=== PATIENT | female | born 1995 | race Caucasian/White ===

== ENCOUNTER 2024-01-01 08:56 | Emergency (ER) | payer OTHER, SELFPAY ==
[2024-01-01 09:02] VITALS: BP 129/97; PULSE 100; TEMP 36.9; O2SAT 100; BMI 24.6
--- NOTE | 2024-01-01 09:25 | ED_ITS ---
HPI - Eye Problem General Chief complaint: Skin/Abscess/Foreign Body Stated complaint: EYE PAIN Time Seen by Provider: 01/01/24 09:12 Source: patient Mode of arrival: walk-in Limitations: no limitations History of Present Illness HPI Narrative: 28-year-old female presents for right eye irritation. She accidentally got some nail glue in her right eye only this morning when it splashed up when she spilled it. She flushed out for multiple minutes at home but has discomfort and feels like something is in her eye. It is a burning sensation and it is continuous. Related Data Previous Rx's ?Medication ?Instructions ?Recorded ketorolac 0.5 % eye drops (Acular) 1 drp ophthalmic (eye) Q6H PRN 01/01/24 pain #5 mL sulfacetamide sodium 10 % eye drops 2 drp ophthalmic (eye) Q4H #15 mL 01/01/24 tramadol 50 mg tablet 50 mg PO Q6H PRN pain 3 days #12 01/01/24 tabs Allergies Allergy/AdvReac Type Severity Reaction Status Date / Time acetaminophen (From Pamprin Allergy Severe Hives Verified 01/01/24 09:02 Max) aspirin (From Pamprin Max) Allergy Severe Hives Verified 01/01/24 09:02 caffeine (From Pamprin Max) Allergy Severe Hives Verified 01/01/24 09:02 Review of Systems ROS Narrative A ten point review of systems is negative except as noted above. PFSH PFSH Social History Little interest or pleasure in doing things: more than half the days Feeling down, depressed, or hopeless: not at all Exam Narrative Exam Narrative: Nurses note and vital signs reviewed and patient is not hypoxic. General: The patient appears uncomfortable Skin: Warm, dry, no pallor noted. There is no rash noted. Head: Normocephalic, atraumatic Eye: Left eye appears normal. Right conjunctiva minimally injected. No foreign bodies are found with lid eversion. Fluorescein staining and Bang lamp examination shows a small corneal abrasion at the 6 o'clock position. Globe intact. No residual foreign body noted Ears, Nose, Mouth, and Throat: oral mucosa is moist. Nares patent. Cardiovascular: Regular Rate and Rhythm Respiratory: Patient is in no distress, no accessory muscle use GI: Nontender Musculoskeletal: No joint swelling Neurological: Awake and alert Psychiatric: Cooperative Constitutional Vital Signs, click to edit/add: Last Vital Signs Temp 98.5 F 01/01/24 09:02 Pulse 100 H 01/01/24 09:02 Resp 14 01/01/24 09:02 BP 129/97 H 01/01/24 09:02 Pulse Ox 100 01/01/24 09:02 O2 Del Method Room Air 01/01/24 09:02 Course Vital Signs Vital signs: Vital Signs Temperature 98.5 F 01/01/24 09:02 Pulse Rate 100 H 01/01/24 09:02 Respiratory Rate 14 01/01/24 09:02 Blood Pressure 129/97 H 01/01/24 09:02 Pulse Oximetry 100 01/01/24 09:02 Oxygen Delivery Method Room Air 01/01/24 09:02 Temperature 98.5 F 01/01/24 09:02 Pulse Rate 100 H 01/01/24 09:02 Respiratory Rate 14 01/01/24 09:02 Blood Pressure 129/97 H 01/01/24 09:02 Pulse Oximetry 100 01/01/24 09:02 Oxygen Delivery Method Room Air 01/01/24 09:02 MDM - Eye Problem MDM Narrative Medical decision making narrative: She is prescribed Acular, Ultram, and Bleph-10. Treatment diagnosis and follow- up were discussed with the patient. Differential Diagnosis Differential diagnosis: Likely corneal abrasion, conjunctivitis, acute iritis and subconjunctival hemorrhage Discharge Plan Discharge Chief Complaint: Skin/Abscess/Foreign Body Clinical Impression: Corneal abrasion Patient Disposition: Home, Self-Care Time of Disposition Decision: 09:20 Condition: Good Mode of Transportation: Private Vehicle Prescriptions / Home Meds: New sulfacetamide sodium 10 % drops 2 drp ophthalmic (eye) Q4H Qty: 15 0RF tramadol 50 mg tablet 50 mg PO Q6H PRN (Reason: pain) 3 Days Qty: 12 0RF ketorolac [Acular] 0.5 % drops 1 drp ophthalmic (eye) Q6H PRN (Reason: pain) Qty: 5 0RF Print Language: Macedonian Instructions: Corneal Abrasion (ED)
[2024-01-01] MEDS: FLUORESCEIN SODIUM 1 MG STRIP OP (09:38)
== END 2024-01-01 09:45 | disposition home or self-care (01) ==
PROVIDERS: Emergency Provider Emergency Medicine
DX: S05.01XA Injury of conjunctiva and corneal abrasion without foreign body, right eye, initial encounter (principal); X58.XXXA Exposure to other specified factors, initial encounter
CPT/HCPCS: 99283

== ENCOUNTER 2024-05-22 01:55 | Emergency (ER) | payer OTHER, SELFPAY ==
[2024-05-22 02:04] VITALS: BP 134/93; PULSE 84; TEMP 36.8; O2SAT 100; BMI 25.0
--- OUTSIDE RECORDS SUMMARY | 2024-05-22 02:06 | XMS_ITS | CCD ---
[facility] Providers Care Improvement Auditor Name Role Phone JADEN SCALES Attending Unavailable TIMMIS, DR SAXENA Attending Unavailable TIMMIS, DR SAXENA Admitting Unavailable TIMMIS, DR SAXENA Consulting Unavailable SACLES ., DR JADEN Godoy Primary Care Unavailable Juan Nelson Consulting Unavailable SCALES ., DR JADEN Godoy Primary Care Unavailable SCALES ., DR JADEN Godoy Consulting Unavailable SCALES ., DR JADEN Godoy Attending Unavailable SCALES ., DR JADEN Godoy Admitting Unavailable Juan Nelson Consulting Unavailable SCALES ., DR JADEN Godoy Primary Care Unavailable SCALES ., DR JADEN Godoy Consulting Unavailable SCALES ., DR JADEN Godoy Attending Unavailable SCALES ., DR JADEN Godoy Admitting Unavailable Juan Nelson Consulting Unavailable Unavailable Primary Care Provider Unavailbrandon Cordoba DMD, MD, Justin Unavailable [phone] BRENDA CORDOBA Admitting Unavailable BRENDA CORDOBA Attending Unavailable BRENDA CORDOBA Referring Unavailable PROVIDER, UNKNOWN Attending Unavailable PROVIDER, UNKNOWN Admitting Unavailable PROVIDER, UNKNOWN Attending Unavailable PROVIDER, UNKNOWN Admitting Unavailable PROVIDER, UNKNOWN Attending Unavailable BRENDA CORDOBA Referring Unavailable PROVIDER, UNKNOWN Admitting Unavailable PROVIDER, UNKNOWN Attending Unavailable PROVIDER, UNKNOWN Admitting Unavailable BRENDA CORDOBA Referring Unavailable PROVIDER, UNKNOWN Attending Unavailable TAMARA HIADER Referring Unavailable PROVIDER, UNKNOWN Admitting Unavailable Emeli KAISER MD, Justin Unavailable [phone] Medications Current Medications Medication Drug Class(es) Dates Sig (Normalized) Sig (Original) acetaminophen 325 mg / HYDROcodone bitartrate 5 mg oral tablet (6 sources) Opioid Agonist Start: 12-07-2022 End: 12-10-2022 take 1 tablet by mouth every six hours as needed for pain hydrocodone-aceta minophen (NORCO) 5-325 mg per tablet Indications: Impacted teeth Take 1 Tablet by mouth every 6 hours as needed for Pain for up to 3 days. 12 Tablet 0 12/07/2022 12/10/2022 Active Start: 10-16-2022 End: 10-19-2022 take 1 tablet by mouth every six hours as needed for pain hydrocodone-acetaminophen (NORCO) 5-325 mg per tablet Indications: Cystic lesion of maxilla determined by X-ray Take 1 Tablet by mouth every 6 hours as needed for Pain for up to 3 days. 12 Tablet 0 10/16/2022 10/19/2022 Active acetaminophen 325 mg / oxyCODONE hydrochloride 5 mg oral tablet (1 source) Opioid Agonist Start: 12-07-2022 oxyCODONE-acetaminophen (PERCOCET) 5-325 mg per tablet amoxicillin 500 mg oral capsule (10 sources) Penicillin-class Antibacterial Start: 12-07-2022 End: 12-14-2022 take 1 capsule by mouth every eight hours amoxicillin (AMOXIL) 500 MG capsule Take 1 Capsule by mouth every 8 hours for 7 days. 21 Capsule 0 12/07/2022 12/14/2022 Active Start: 10-16-2022 End: 10-23-2022 take 1 capsule by mouth three times daily amoxicillin (AMOXIL) 500 MG capsule Take 1 Capsule by mouth 3 times daily for 7 days. 21 Capsule 0 10/16/2022 10/23/2022 Active calcium chloride 0.0014 meq/ml / potassium chloride 0.004 meq/ml / sodium chloride 0.103 meq/ml / sodium lactate 0.028 meq/ml injectable solution (1 source) Start: 12-07-2022 melodie pineda rs iv infusion chlorhexidine gluconate 1.2 mg/ml mouthwash (14 sources) Start: 12-07-2022 take 15 mL by mouth twice daily chlorhexidine (Peridex) 0.12 % oral solution Take 15 mL by mouth 2 times daily. 1 mL 3 12/07/2022 Active Start: 10-16-2022 End: 10-23-2022 take 15 mL by mouth twice daily, then take 15 mL by mouth three times daily after mealtime chlorhexidine (Peridex) 0.12 % oral solution Take 15 mL by mouth 2 times daily for 7 days. Swish 15mL for 60 seconds and spit, three times daily after meals, do not swallow. 473 mL 0 10/16/2022 10/23/2022 Active fentaNYL (SUBLIMAZE) 50 MCG/ML injection (1 source) Start: 12-07-2022 fentaNYL (SUBLIMAZE) 50 MCG/ML injection ibuprofen 600 mg oral tablet (14 sources) Nonsteroidal Anti-inflammatory Drug Start: 12-07-2022 take 1 tablet by mouth every six hours as needed for pain ibuprofen (MOTRIN) 600 MG tablet Take 1 Tablet by mouth every 6 hours as needed for Pain. 30 Tablet 3 12/07/2022 Active Start: 10-16-2022 End: 10-23-2022 take 1 tablet by mouth every six hours as needed for pain ibuprofen (MOTRIN) 600 MG tablet Take 1 Tablet by mouth every 6 hours as needed for Pain for up to 7 days. 28 Tablet 0 10/16/2022 10/23/2022 Active 1 ml naloxone hydrochloride 0.4 mg/ml injection (1 source) Opioid Antagonist Start: 12-07-2022 naloxone (NA RCAN) 0.4 MG/ML injection Problems Active Problems Problem Classification Problem Date Documented Date Episodic/Chronic Other nutritional; endocrine; and metabolic disorders (3 sources) Overweight in adulthood with body mass index of 25 or more but less than 30; Translations: [Body mass index (BMI) 27.0-27.9, adult] 08-31-2022 Episodic Other skin disorders (4 sources) Localized swelling, mass and lump, head; Translations: [LOCALIZED SWELLING MASS AND LUMP HEAD] Onset: 05-25-2022 Episodic Other upper respiratory infections (8 sources) Chronic sinusitis, unspecified; Translations: [Chronic maxillary sinusitis] Onset: 12-26-2021 Chronic Residual codes; unclassified (4 sources) Postoperative state; Translations: [Other specified postprocedural states] 12-14-2022 Episodic Past or Other Problems Problem Classification Problem Date Documented Date Episodic/Chronic Disorders of teeth and jaw (20 sources) Tooth eruption disorder; Translations: [Disturbances in tooth eruption] Onset: 08-21-2022 Resolved: 12-07-2022 08-21-2022 Episodic Other nutritional; endocrine; and metabolic disorders (1 source) Body mass index (BMI) 27.0-27.9, adult; Translations: [Body mass index (BMI) 27.0-27.9, adult] Onset: 08-21-2022 Episodic Residual codes; unclassified (1 source) Other specified postprocedural states; Translations: [Other specified postprocedural states] Onset: 12-14-2022 Episodic Results Test Name Value Interpretation Reference Range Facility Progress Noteson 04-07-2023 Merchandise Examiner Authentication Interface Message Text ORAL SURGERY CLINIC FOLLOW UP VISIT Chief Complaint: Pt presents for follow up. History of present illness: 27 yrs old White female 4 months s/p removal of cyst in maxilla. Patient's chief complaint is that when she presses on her left nose, #9 hurts. Patient has no complaint with #11. Patient denies fever, chills, odynophagia, dysphagia, and shortness of breath. Review of Systems: no change Physical findings: Incisions are fully epithelialized Sutures: no longer present No purulence or erythema noted No signs or symptoms of infection Maximum interincisal opening is ~40 No V3 hypoesthesia Occlusion stable and reproducible Assessment / Diagnosis: Periapical cyst [887916] 27 yrs old White female 4 months s/p removal of cyst in maxilla. Patient's chief complaint is that when she presses on her left nose, #9 hurts. Patient has no complaint with #11. It is unlikely that the pain is due to the residual tissue as the left nose area is significantly further up from the area of the cyst removal. Patient also informed that she would likely need root canal treatment on #11, as it is devitalized, and possibly re-treatment for #9. Patient had been given the run-around by her general dentist, and was given a referral to [facility] for evaluation and treatment of #11. Normal postoperative course. Healing as expected. Case seen and discussed with Dr. Cordoba Plan: Follow-Up: PRN Follow up sooner with new or worsening symptoms. Normal [facility] Merchandise Examiner Authentication Interface Message Text Normal The [place] Telephone Encounteron 2023 Merchandise Examiner Authentication Interface Message Text Patient calling back in. Relayed message patient stated the Am time from 9 am to 11:30 am would work best. Please reach out to her to assist. Phone numbers Normal The [employer] Authentication Interface Message Text Called pt to get scheduled for a f/u appt on 04/07 requested by . [facility] stating she can come in any time between 9am-11:30am or 1-330pm Normal [facility] Progress Noteson 12-14-2022 Merchandise Examiner Authentication Interface Message Text Teaching Physician Note: I saw and evaluated the patient. I personally obtained the don and critical portions of the history and physical exam. I reviewed the resident's documentation and discussed the patient with the resident. I agree with the resident's medical decision making as documented in the resident's note. Brenda Cordoba DMD, MD Normal [facility] Merchandise Examiner Authentication Interface Message Text Patient is a 27 y/o F who presents for f/u following extractions of #1 16 17 and 32, routine extraction of #10; E AND C of UL anterior maxillary lesion under general anesthesia one week ago. She reports that he has minimal to no pain in the areas of surgery. She denies any dysphagia, odynophagia fever or chills. 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 CN V and VII intact b/l Sites of extractions healing WNL Sutures intact w/o any evidence of dehiscence FEROZ 30 mm however, able to open to 35 mm gentle stretching No gross mobility of the anterior maxillary teeth noted Patient is a 27 y/o F who presents for f/u following extractions of #1 16 17 and 32, routine extraction of #10; E AND C of UL anterior maxillary lesion under general anesthesia one week ago. Patient appears to be following normal post-operative course. It is important to note that we discussed that given the involvement of the dentigerous cyst turned periapical cyst around #11, vitality of the tooth is questionable and with guarded prognosis may necessitate root canal treatment in the future however this can be done with patient's dentist. Although there is no gross mobility of the anterior maxillary teeth, its still in the patient's best interest to ensure soft diet during the healing process as the bone at the anterior maxilla is weak d/t obvious reasons. Finally we discussed gentle stretching of the jaw to improve FEROZ and that a bridge would be the ideal restorative option to replace #10 d/t the quality of bone in the area in the setting of cystic involvement. Plan F/u as needed Normal [facility] Anesthesia Postprocedure Elaine brewster 12-07-2022 Merchandise Examiner Authentication Interface Message Text Anesthesia Postoperative Assessment: Vital Signs (most recent): BP 140/89 (BP Location: right arm) Pulse 82 Temp 36.7 ???C (98 ???F) (Temporal) Resp 18 Ht 5' 5 (1.651 m) Wt 150 lb (68 kg) LMP 11/30/2022 (Within Weeks) SpO2 100% BMI 24.96 kg/m??? Anesthesia Post Evaluation Level of consciousness: awake Post-procedure exam normal. Body temperature, hydration status, PONV and pain evaluated and addressed. Pain management: adequate Hydration status: normal PONV:No nausea/vomiting reported Cardiopulmonary status stable Respiratory status: acceptable Cardiovascular status: acceptable ANESTHESIA NOTABLE EVENTS: No notable events documented. Normal [facility] Anesthesia Transfer Of Careo n 12-07-2022 Merchandise Examiner Authentication Interface Message Text Patient taken to PACU. Patient was awake, comfortable and stable on arrival. Anesthesia Transfer of Care Note Past Medical History: Past Medical History: Diagnosis Date * Abnormal tooth eruption 11/2022 * Anxiety disorder * Cystic lesion of maxilla determined by X-ray 11/2022 Sleep Apnea/Positive STOP-BANG: No Problem List: Patient Active Problem List: Cystic lesion of maxilla determined by X-ray [M27.40] Past Surgical History: Review of patient's past surgical history indicates: NO PAST SURGICAL HISTORY Allergies: Patient has no known allergies. Basic Operating Room Facts: Surgeon(s): Brenda Cordoba DMD, MD Anesthesiologist: Lex Niño MD Public Relations: Laura Goddard MD EXCISION CYST, enucleation and curretage of left maxillary cyst extraction teeth #1,10,16,17,32 and other indicated teeth (Left) Intraoperative Events: No acute event ASA: 1 EBL: Not documented Urine Not documented Lactated Ringers and NaCl 0.9%: Fluid Totals (Filter: LR and NaCl 0.9% Medications Shown) Medication Calculated Total Lactated Ringers 500 mL / 1 bag Cell Saver: Not documented Blood Volume Values: Blood Products None MTP Blood: MTP PRBC: Not documented MTP FFP: Not documented MTP PLT: Not documented MTP Cryo: Not documented MTP Whole Blood: Not documented Current Vasoactive Medications: {Vasoactive Medications: None Lines, Drains, Airways Peripheral IV Access: 10/02/23 0931 22 gauge Anterior;Right Forearm (Active) Site Assessment WNL;Dressing intact 12/07/22930 Infusion Status Port #1 Infusing;Patent 12/07/22930 Airway Insertion Details [REMOVED] Advanced Airway: ETT, Oral #7 (Removed) 12/07/22943 Pre-Oxygenation/ Induction: Mask Rapid Sequence Induction?: Mask Ventilation: Easy Blade size: Mac 3.5 Visualization: Airway Type: ETT, Oral Airway Size: #7 Post Insertion Assessment: Confirmation: Equal bilateral breath sounds, CO2 confirmed # Attempts >1: Special Equipment: Present on Admission?: Previously Removed / Not Present: Removal Reason: Not Removed at Discharge: Removed 12/07/22 1050 Location (cm) 23 12/07/22943 Measured from: Lips 12/07/22943 Secured via: Taped 12/07/22943 Site Assessment WNL 12/07/22943 All non-working IVs have been removed: N/A Laboratory Data: CBC (last 3 years, up to 5 values) None Basic Metabolic Panel None Basic Metabolic Panel None No results found for: INR No result for BNP LFT's (last 3 years, up to 5 values) None Arterial Blood Gases None Hand off Completed: Yes 1. The patient was identified. 2. Pertinent medical history was relayed. 3. A brief discussion was had about any pertinent surgical/ procedural issues. 4. Intraoperative/ anesthetic management issue and concerns were discussed. 5. Plans for the early post-operative period relayed. 6. An opportunity for questions and acknowledgment of understanding of the report was received. Laura Goddard MD Normal [facility] 12-07-2022 Merchandise Examiner Authentication Interface Message Text [facility] Division of virtualization engineer [address] [place] [address] [place] [id number] OPERATIVE NOTE Name: Comfort Victoria MR#: [id number] ENC#: Data Unavailable Surgical Case #: Data Unavailable Date of Procedure: 12/07/2022 ? PREOPERATIVE DIAGNOSIS: Cystic lesion of maxilla determined by X-ray (Primary Diagnosis) [[id number]] Impacted teeth [[id number]] ? POSTOPERATIVE DIAGNOSIS: Cystic lesion of maxilla determined by X-ray (Primary Diagnosis) [2818297] Impacted teeth [[id number]] OPERATION: FULL BONY IMPACTION [D7240] EXTRACTION ERUPTED TOOTH/EXR [D7140] EXCISION, BENIGN TUMOR/CYST MAXILLA/ZYGOMA, ENUCLEATION AND CURETTAGE [[id number]] ? ATTENDING SURGEON: Brenda Cordoba ? FIRST SURGEON: Brenda Cordoba DMD, MD ? SECOND SURGEON: Sam Botello? ANESTHESIA: General anesthesia via oral endotracheal tube intubation supplemented with 20 mL of a 50/50 mixture of 1% lidocaine with 1:100,000 epinephrine and 0.5% Marcaine. ? SPECIMENS: cyst left maxilla ? ESTIMATED BLOOD LOSS: 30 mL. ? IV FLUIDS: 1000 mL. ? FINDINGS: large cyst left anterior maxilla. Extends up to the nasal floor with disruption of the piriform rim. Apices of tooth #9,10,11 all extend into the cystic cavity, but tooth #10 is centered in the cyst.. ? DESCRIPTION OF OPERATION: The patient was taken to the operating room on a cart and transferred onto the operating room table under thiQuincee own power. The patient was then placed in the supine position. A time-out was conducted to confirm correct patient and procedure to be performed. Anesthesia team, Surgical staff and Nursing team all agreed on correct patient and laterality of the procedure. At this time care of the patient was transferred over to the Anesthesia Service for induction of general anesthetic and intubation. The patient was intubated via oral endotracheal tube intubation. The tube was secured and care of the patient was transferred back to the Oral Maxillofacial Surgery service for continuation of the procedure. The patient was then prepped and draped in usual sterile fashion and the oral cavity was suctioned clear and A throat pack placed deep in the oropharynx. Routine extraction tooth #7 Teeth numbers #'s 1, 16 were full bony impactions Surgical access and exposure was accomplished by a buccal FTF 45 hockey stick incision. Alveolar bone removal was accomplished with periosteal elevator and/or straight dental elevator. The teeth were sectioned into 1 pieces. The teeth and/or fragments were removed by elevator technique. Surgical debris and remaining epithelial fragments were removed by rongeurs. Teeth numbers #'s 17, 32 were full bony impactions Surgical access and exposure was accomplished by a buccal FTF 45 hockey stick incision. Alveolar bone removal was accomplished with a cat drill and irrigation.. The teeth were sectioned into 2 pieces. The teeth and/or fragments were removed by elevator technique. Surgical debris and remaining epithelial fragments were removed by rongeurs. The wounds were irrigated with sterile saline. Mucogingival wound closure utilized 3-0 Chromic interrupted sutures. A sulcular incision was performed from tooth #8-12 with vertical releases bilaterally. A buccal flap was elevated. This was subperiosteal around the periphery of the lesion, and partial thickness over the cystic area. The cyst was then enucleated from the surrounding bone, and dissected off of the nasal mucosa, which is intact. There is violation of the piriform rim inferolaterally. The cavity was evaluated, and decision to leave tooth #9,11. Both of these teeth are compromised, with guarded prognosis, but may be salvageable (although #11 will need root canal, which patient is aware of). The cavity was packed with gelfoam, and closure 3-0 chromic gut. The oral cavity was suctioned clear and the throat pack was removed. After wound closure was accomplished care of the patient was transferred back to the Anesthesia Service for emergence from the general anesthetic and extubation. The patient was extubated without incidence and transferred back to a cart where he was taken to the Post Anesthesia Care Unit for further monitoring. The patient was stable during the entire procedure. There were no complications. Dr. Cordoba was present for all critical parts of the procedure. ? ? ? Brenda Cordoba DMD, MD Normal [facility] URINE HCG-IN OFFICEOrdered B y: Salena Romero on 12-07-2022 HCG ( test) Ql (U) Negative Negative [facility] Negative Internal Control Negative Negative [facility] Positive Internal Control Positive Positive [facility] Anesthesia Preprocedure Eval uationon 12-06-2022 Merchandise Examiner Authentication Interface Message Text ASA: 1 No history of anesthetic complications NPO status: Greater than 8 hours Past Medical History and Review of Systems Pulmonary - negative ROS Dental - negative ROS Endo - negative ROS ceo na (+) irregular periods, Neuro/Psych - negative ROS Cardiovascular - negative ROS (+) Surgical risk: low; Cardiac condition: no apparent, (-) exercise intolerance No previous ECG available GI/Hepatic/Renal - negative ROS Heme/Other - negative ROS Physical Exam Airway Mallampati: I TM distance: Adequate Micrognathia: Not present Jaw opening: Adequate Neck flexion: Adequate Dental PE (+) intact Pulmonary - pulmonary exam normal Comment: Chest clear to auscultation bilaterally Cardiovascular - cardiovascular exam normal Comment: RRR with S1S2; no murmurs, gallops, or rubs Neuro - neurological exam normal Comment: Awake, alert, oriented, No motor deficits and sensation grossly intact Plan Anesthesia plan: general (ETT) Medications may include (but not limited to): anxiolytics, narcotic analgesics, IV hypnotics, neuromuscular blockers and inhalational analgesics Pain management: May include (but not limited to): IV, anxiolytics and narcotic analgesics Anesthesia risks / alternatives discussed pre-op Attestation: Anesthesia options were discussed with the patient and/or legal strategic partnership representative. The risks, benefits and alternatives were reviewed. Questions regarding anesthesia were answered. Patient and/or legal strategic partnership representative knows such anesthetics and procedures may be performed by Resident physicians, Certified Anesthesiologist Assistants, or Certified Nurse Anesthetists under the supervision of a physician. The patient /or the patient's legal strategic partnership representative agree with the plan for anesthesia. Normal [facility] Telephone Encounteron 2022 Merchandise Examiner Authentication Interface Message Text VM TO PATIENT OF SURGERY LOCATION CHANGE FROM TO [address] ON 12-[address] CORDOBA LEFT MESSAGE TO CALL ME BACK. Normal [facility] PSE Call H AND N[place] Merchandise Examiner Authentication Interface Message Text Telephone History Comfort Victoria, [id number] 11/24/2022 Patient was identified by name and date of . Karen Brizuela RN 27 year old 153 lbs 5' 5 Date of Surgery: 12/07/2022 at [facility] Surgeon: Emeli Type of Surgery: EXCISION CYST, LEFT HISTORY OF PRESENT ILLNESS: PSE telephone history conducted with patient for upcoming surgery with . ORAL SURGERY CLINIC PROCEDURE NOTE [facility] Product(s): Biopsy of left anterior maxillary lesion PMH: Reviewed, no change. Antibiotic prophylaxis indicated/taken: not applicable Discussed risks, benefits, and alternatives of treatment. All of the patient's questions were answered, and informed consent was obtained: yes Pre-op Diagnosis: Maxillary bony lesion PROCEDURE TIME OUT CHECK LIST Radiograph is correctly matched to the patient,diagnostic quality, correctly oriented for laterality: Yes Time out performed confirming correct surgical site and/or involved teeth verified by the patient and the surgeon: Yes Anesthesia: 3x1.8cc of 4% articaine 1:100,000 epinephrine 1x1.8cc of 0.5% bupivacaine 1:200,000 epinephrine Attending: Brenda Cordoba DMD, MD Resident: Gurdeep Cortes DDS, MD PROCEDURE: Local anesthesia administered via local infiltration to site of intended extraction. Soft tissue released and FTMP flap created around teeth #9-11 with a distal vertical release around tooth #11. A FTMP flap was elevated to expose the lesion, which was easily accessible through the thin facial bone. Rongeur used to remove a portion of the lesion, which was sent for pathology evaluation. Placed 3-0 chromic gut suture to re-approximate tissue primarily. Sites hemostatic. Gauze placed over extraction sites. Complications: none Specimens: none Estimated blood loss: Minimal (<5 ml) Disposition: Home Plan: - FU Biopsy Results - Scheduled Ext #1, 16, 17, 32 under [place] at Gurdeep Cortes MD, YONY STOP-BANG Row Name 11/24/22 0945 History of sleep apnea? No Snoring No Tired/Fatigued Yes Observed Apnea No Pressure: Hypertension No BMI greater than 35 0 Age greater than 50 0 Neck circ greater than 40cm (15.75 ) Unable to Assess Gender male? 0 Score 1 EXERCISE CAPACITY: 4-10 mets ALLERGIES: Patient has no known allergies. PREVIOUS ANESTHETIC EXPERIENCES AND INTUBATION HISTORY: No previous anesthetic FAMILY HISTORY OF ANESTHETIC COMPLICATIONS: No PAST MEDICAL HISTORY: Past Medical History: Diagnosis Date Abnormal tooth eruption 11/2022 Anxiety disorder Cystic lesion of maxilla determined by X-ray 11/2022 PROBLEM LIST: Patient Active Problem List: Cystic lesion of maxilla determined by X-ray [M27.40] REVIEW OF SYSTEMS: Eyes/Ears: Cystic lesion maxilla and scheduled for excision cyst Teeth Abnormal tooth eruption and listed in surgeon's note [place] teeth to be extracted Pulmonary: Negative Cardiovascular: Negative Gastrointestinal: Negative Renal/Genitourinary : Negative Musculoskeletal: Negative Endocrine: Negative Hematologic: Negative Neurologic: Negative Psychiatric: Anxiety Gynecologic:Irregul ar Menses Constitutional:Nega tive PAST SURGICAL HISTORY: Past Surgical History: Procedure Laterality Date NO PAST SURGICAL HISTORY SOCIAL HISTORY: Social History Socioeconomic History Marital status: Single Tobacco Use Smoking status: Never Smokeless tobacco: Never Substance and Sexual Activity Alcohol use: Never Drug use: Never PAIN ASSESSMENT: Severity: 0 Location: N/A LABORATORY DATA: Type AND Screen None CBC (last 3 years, up to 5 values) None Basic Metabolic Panel None No result for BNP LFT's (last 3 years, up to 5 values) None TESTS REVIEWED: CXRay: No Chest x-ray found EKG: Last ECG Date: Not Found ECHO: Last Echocardiogram: none found going back to 05/25/2022 No results found for this basename: LVEF Stress test date: Last StressTest: none found going back to 05/25/2022 CURRENT MEDICATION LIST: No current outpatient medications on file. No current facility-administer ed medications for this visit. CURRENT MEDICATIONS: Aspirin: No NSAIDS: Yes, prn Other Antiplatelet Medication: No Anticoagulants: No Steroids: No PATIENT MEDICATION INSTRUCTIONS: On the morning of your surgery please take only the following medications, with a small sip of water: None Do not take any Aspirin 7 days before the surgery. Do not take any Ibuprofen products/NSAIDs 3 days before surgery. May take over the counter Acetaminophen (Tylenol) as needed for pain. Do not take any Vitamin E, Elverta 3, fish oils, herbal medications 7 days prior to surgery (Fish Oil, Ginseng, Ginko Biloba) DAY OF SURGERY NOTES: The patient is to have nothing to eat after midnight and may have clear liquids up until 2 hours prior to arrival time. Needs physical assessment, HCG, neck circumference morning of surgery. Kaern Brizuela RN Time Spent Performing thi (more content not included)... Normal [facility] No Panel InformationOrdered By: Virginia Khan on 10-19-2022 Case Report Surgical Pathology Report Case: [id number] Authorizing Provider: Brenda Cordoba DMD, MD Collected: 10/16/2022 1400 Ordering Location: [facility] Oral Surgery Received: 10/16/2022 1400 Pathologist: Virginia Khan MD Specimen: Maxilla [facility] Work Phone: Clinical Information [facility] Work Phone: Final Diagnosis [id number] mbGFuZzEwMzNcZnRuYm pcdWMxIHtccnRmMVxlc AfkOGHbSLEbMT4fzCkb tTz2xMnsNHAwitU3aKS eQLoym3gnLLE3w0jeyz owMTFwRKnvEj2aaPKap PpbLzOlWITyOBz8oD73 MCJpmC3txAIlVDq4UUU hcGVydzEyMjQwXHBhcG BqxNC4RBDjQG8gynylJ OtsVMiiVYEjqqP6ACEl wBAwZ5NeHEMoWW7hhmu bABV3YEcwQYGqLYB8Xq LeDGKox3Knmzq9PdRoy GFyZFxwbGFpblxiXGZz JhIhZF2hOw2kcKrnnRP sICJccGFyXGIwXHBhci CEiLPjjrT0XVKpd5V7B T8lgVJhUWGbqEpkoUsg cZImlT6uaxulc8b1xIL bT6U6ARDkunYmC9yra5 1bKvNqsrAoVE4tTBKne 24sIGFuZCBncmFudWxh vZpgmuX4cKBpvYIcTx8 mnBI0uC7hIGVzd1M0QL CzhlDrr9WozsJco9s1t CUlwzIyqgWiHX8mMUOr AZ50kMkjkq51lpCchPX 0LlxwYXJccGFyfXtccn NiWDyhv2FfX2DwMkEnS FxhbnNpXGRlZmxhbmcx VIBfNGN2zjMfJIXaWNy xUVKxCFawRs6biPYgrC wfMmEeMWBjo7pdjhVPe fuamMp1p3vrKXXiToL2 gOCyAVxkX7fhouXpzSU pUOGuYGu2jE00TLJgnU 7ihRYaMTjecaQxZcO5W DpqLJFkAoT5BSSreHGi ZDBeT6rcJUY4QSvcyxP vyig1TYUciXW4NVH1LL PnJVHfS5WtQV0yFEXfu JVhZHx7n4idsEwaKHVe MRB2p0boGZdfokBgNE7 hjr7bgCu5d0pbhoHtHH GtEZFsnEIURLVyR4Vgu DhmEd1guZf0lSbgEreq MHS0Mrx1TW5gxw97nwc 7xLtzCFUeqxqkLjP0CV paOTFhvhohXXe0GImyP OGmwGQ0ZCEqlTBkU4Sb JPDzYL1spla1IZF4ATx rCKGiGiV1HDBwwBDjKK HqmHriLOuvw153RLA5N eYaXO8lO6Ugu9R6uX7m aXRcZGVmdGFiNzIwXGZ uld6wdOSpLKuyr2FaAJ W6evN1pODyqKJzCMHjS M89Bwwue3TpUdcoTFN8 RZCzwjCft3Rrk1toXvW rmsBfV9jgV6OqGVDpVK VlFTSuYoZalhEjz5Xyl 5GbfBJbdUl8c4gmDWNz LOMfdUury6mlEGZ2EYP wI1D4oWQwq8ozANykXM XpdXT3szE3FXZhaYTfV 5IooA7dUFIzNU7pjdd7 g1yeLXM1PYdyDQUxQhL 5hgX6UNUrlXOuPSCouF xtOKbxk953OVB5QtYfR AHox5FvH9SzwIxsN80j qAzbD28dFIUjqHlhmN5 vmHgdmV0gXeTaOvLtNK xxbFxwbGFpblxmMVxmc zIyXGxhbmcxMDMzXGhp L8hvFiZhWFYeyUpkJDw xi3RxYJIxUOWeVaAibC FyXHBsYWluXGYxXGZzM jBcbGFuZzEwMzNcaGlj aFxmMVxkYmNoXGYxXGx gR7ohAkYwVpSoMOHBsY VjdHJvbmljYWxseSBTa UaqFXFvU2V4GJC2GVNv bmlhIFJheWVzLURhbmF qTVCBQHAafaVdGV5cFX 8yMDIzLlxwYXJccGFyX HBsYWluXGYxXGZzMThc bGFuZzEwMzNcaGljaFx mMVxkYmNoXGYxXGxvY2 zrYqGdJ4IuDCKqDAxuj SBJIGNlcnRpZnkgdGhh dCBJIHBlcnNvbmFsbHk wD04mGQRbxJVqQAKdTJ UweSOegw8diMmsVWW1G Kr9EIVea90sx9IkdZhg DNSar9RbSGGlVILxfRU uKHMpIGFuZCBoYXZlIH JlbmRlcmVkIHRoZSBma X2cpAZomEJttd8anHKs HOOlHmLszNyhpH4pKcE mHwWdCxyiAH8mHBMbJ4 wijETeOVHwCHUzJ9ioD xXzbM2oaFasVDxlepGz LOHzvumpSBP1uT== [facility] Work Phone: Gross Description x8sbdAFgWWDtxKZnQYV wNlxhbnNpXHNwbHRwZ3 MjkrozQAiaMR7wLZ7yi GxhdHRveWVuXGRlZmYw i8fxj193nVWbl0jbYMG PajmgkJi0rNklF89nm1 M3SgcxI48smZKiVUD9F TIyNDBccGFwZXJoMTU4 ORRfrFPkM8ueIBEeDB8 hcmdyMTgwMFxtYXJndD D3SJJhdMTyJ4XnBCNnF LpaCKTkrdj6IkEcXc5g dGVyeTcyMFxwYXJkXHB gGXifFQYrJwVuBE5pMM BwtDKaw4x4kO3tQCWbF KDuAw9yqFnakHHrWhxr YXIgVGhlIHNwZWNpbWV uQCipVGOeF8MnycQpGT IwnULkRAkgATWil8dvK 1zkQDXkifPrhI6rvbvh eSKxQDzaXHY3pQHpVGL evKunwvAsvsIpWL7fHE YfHQYwL6EnITJqE45lR FXguI5pZLPqQMBtYNDf fENkzBTdkQKbcK6tNQK zOMHEeXJxo7IyY1gsCD 9iW88loBYdtyFiIIogL C4bpTVamDZ4bJOsNHQr n7nshxT9QDEoNGOKvVY yv2UeT3tvDL3oI32lb2 rdlRMgw9SsPDEcdSBxT ShzKSBvZiByZWQtdGFu XOVkNaJirFmds6NaVO4 lNTP4ffxvNsSqBuTxxW SbDmGhkNRbLcDyC34mG XLtQROvgTUdnY0mgkJq qvYmjUYisMV4EZOliI8 qiI65rmPwnsYzoeYfW8 Nuz8X1jXZgONSpTD4uE IGuazcuUMOoo2BatFKj fQ== [facility] Work Phone: [facility] Work Phone: Progress Noteson 10-19-2022 [employer] Interface Message Text Teaching Physician Note: I saw and evaluated the patient. I personally obtained the don and critical portions of the history and physical exam. I reviewed the resident's documentation and discussed the patient with the resident. I agree with the resident's medical decision making as documented in the resident's note. Will plan for definitive enucleation and curettage of left maxillary cyst, and likely extraction of tooth/teeth at [facility], pending path. Brenda Cordoba DMD, MD Normal [facility] Patient Instructionson 10-16 [employer] Interface Message Text Oral Surgery Post-operative Instructions BITING ON GAUZE Bleeding may occur for some time after your extraction. In most cases this bleeding can be easily controlled by placing a piece of clean gauze DIRECTLY over the empty tooth socket. Then make sure that you bite firmly on this gauze for 30 to 60 minutes. Use the gauze we supplied to you in the bag. Wash your hands with soap and water before touching the gauze and placing it in your mouth. If a small amount of bleeding continues after 45 minutes then repeat these instructions. Sometimes biting a tea bag may be helpful in controlling minor bleeding. Very light bleeding for 2 days is not uncommon. If heavy bleeding is still persistent during normal clinic hours than call the Clinic where the extraction was done to speak with an oral surgeon. [facility] [phone]. HELPING THE HEALING: For 24 HOURS after your procedure: 1. DO NOT rinse your mouth or spit vigorously 2. DO NOT drink hot liquids such as soup, coffee, tea, hot chocolate 3. AVOID heavy lifting, bending, and strenuous exercise 4. SLEEP with 2 pillows or in a recliner chair, this will help minimize swelling For 72 HOURS (3 DAYS) after your procedure: DO NOT SMOKE OR DRINK ALCOHOL DO NOT DRINK OR SUCK FROM A STRAW STITCHES: Stitches may have been placed to help healing. Your surgeon will specifically inform you if you need to return to have them removed. TOOTH BRUSHING On the day of the procedure it is best to avoid brushing the teeth right next to the extraction site. On the next day you can start brushing ALL your teeth but in a gentle fashion. Remember to not rinse strongly because it may cause you to start bleeding from the extraction site again. SWELLING AND PAIN After the extraction you may feel some pain and experience some swelling. An ice pack may be applied to the area should keep the swelling down (an unopened bag of frozen peas or corn can serve as an ice pack). Put the ice pack on your face for 10 minutes and then leave it off for the next 20 minutes. You can repeat this patter as you feel is necessary for up to 24 hours after the extraction. To avoid injury, make sure that adults or children avoid biting or chewing on their lips of cheeks, which may be numb following a procedure. The peak of swelling occurs 2-3 days after surgery, this is normal. If your pain or swelling seems to be get worse or you feel as though something is not right then call your dentist, as directed above. ANTIBIOTICS AND PAIN MEDICATION If antibiotics have been prescribed then you should take them as directed; this includes taking all the antibiotic (or liquid) pills that were prescribed. If you don't finish them completely a serious infection could result. You may have little of no discomfort after the extraction. If you have minor pain then you may want to take acetaminophen (Tylenol) or ibuprofen (Motrin). It is very important that before taking any medications that you read and follow the directions and warnings that come with these products so you know whether they are right for you and your situation. If you have any questions on whether these medications are right for you, first talk to your doctor or pharmacist before taking the medication. Your surgeon may have given you a written prescription for pain relief. It is important that if you decide to take it you read and understand all the precautions, warnings and directions that come with the medication. If you have any questions on whether the medication is right for you, first talk to your doctor or pharmacist before taking the medication. The pain medication prescription that your dentist gave you may contain a narcotic (like codeine). Most narcotic pain medications can cause upset stomach. If so, then it is best to take them with food. The pain medication prescription that you were given can also make you drowsy or make you act strangely. If so, you should limit or stop activities such as driving a motor vehicle, operate machinery or other activities that require your full attention. EATING AND DRINKING A soft or liquid diet may be best for you after surgery for the first 2-3 days. AFTER ANESTHESIA INSTRUCTIONS: If you were sedated for your procedure, do not drive or operate machinery for 24 hours. A responsible adult should be with you for the remainder of the day. When starting oral intake, be sure to consume CLEAR LIQUIDS first. Clear liquids consist of water, Sprite, martha julius, Jell-O, and non-pulp containing juices such as cranberry and apple juice. Once tolerating clear-liquids, you may advance your diet. Be sure to follow the specific diet instructions from your doctor according to the type of surgery you have had. Patients should not participate in any strenuous activity. Standing and sitting up too quickly following surgery can also result in dizziness and exacerbate these problems. It (more content not included)... Normal [facility] Progress Noteson 08-31-2022 Merchandise Examiner Authentication Interface Message Text Teaching Physician Note: I saw and evaluated the patient. I personally obtained the don and critical portions of the history and physical exam. I reviewed the resident's documentation and discussed the patient with the resident. I agree with the resident's medical decision making as documented in the resident's note. Next step is to return for incisional biopsy of left maxillary cystic lesion, with LA in clinic. Brenda Cordoba DMD, MD Normal [facility] Progress Noteson 08-21-2022 Merchandise Examiner Authentication Interface Message Text OM[facility] PATIENT VISIT CHIEF COMPLAINT: I have a cyst in my jaw HISTORY OF PRESENT ILLNESS: 27 year old female with no significant PMH presents with mother to OM clinic as a referral from an outside provider for the evaluation of cystic lesion in anterior maxillary and evaluation of wisdom teeth. Pt states she had RCT on teeth #9,10 two years ago, and then about 1 year she noticed a lump in the same area. She states as of recent, the size has been relatively unchanged. Pt denies pain associated with the lesion or any intraoral discharge. PAST MEDICAL HISTORY: 27 yrs old White female No past medical history on file. There is no problem list on file for this patient. MEDICATIONS: No current outpatient medications on file. No current facility-administer ed medications for this visit. ALLERGIES: Patient has no known allergies. SURGICAL HX: No past surgical history on file. SOCIAL HX: Tobacco: Never Denies CLINICAL EXAMINATION Extraoral examination: No significant findings No s/s of infection, redness or tenderness to palpation No facial asymmetry or swelling No appreciable LAD No popping/clicking/cr epitus of TMJ b/l No tenderness to palpation of temporalis or masseter asymptomatic function Range of motion WNL CN V and VII intact Intraoral examination: No s/s of infection or tenderness to palpation Moist, pink mucosa Oropharynx clear No pathological soft lesions appreciated Oral cancer screen negative Occlusion stable Oral hygiene fair Buccal expansion of alveolus adjacent to teeth #9,10, that was hard in nature, no fluctance Teeth #1,16,17,22,32 not visible RADIOGRAPHIC INTERPRETATION: Panorex Film and CBCT taken on 08/21/2022 and Retained in our clinic files Tooth # Type Orientation Development Adjacent Structures #'s 1, 16 full bony impactions distoangular 65% abutt maxillary sinus floor #'s 17, 32 full bony impactions mesioangular 65% abutt LIONEL canal Horizontally oriented, full bony impacted tooth #22 RCT #9,10 Large, cystic lesion involving and spanning the roots of teeth #9,10,11 DIAGNOSIS: DDx: Periapical granuloma, lateral periodontal cyst TREATMENT: Exam, Panorex and CBCT evaluated, and Awaiting Insurance authorization. PLAN: 27 year old female with no significant PMH presents with a large, cystic lesion in the left anterior maxilla spanning the roots of teeth #9,10,11. There is buccal expansion associated with this lesion. Pt is indicated for incisional biopsy of lesion for diagnosis and definitive surgical planning. The biopsy will be performed with LA in clinic. Once diagnosis and definitive tx plan are made, tentatively plan for excision of lesion with GA at [facility] d/t the invasiveness of the procedure. Pt also has full bony impacted wisdom teeth with altered paths of eruption and limited arch space for proper eruption of wisdom teeth into the oral cavity. At the time of excision of the cystic lesion, all four wisdom teeth #1, 16, 17, 32 will also be extracted. NV - Incisional biopsy of intrabony cystic lesion in anterior left maxilla with local anesthesia NNV - Excision of cystic lesion with extraction of wisdom teeth #1,16,17,32 with GA at [facility] (PA placed today. But no surgical case request was placed, please schedule surgery once diagnosis is made) Misael Mcgraw DMD Normal [facility] [employer]chandise Examiner Authentication Interface Message Text Pano ordered by Dr. Paz Normal [facility] Telephone Encounteron 2022 [employer]chandise Examiner Authentication Interface Message Text Patient called again today to request a sooner appointment. Please contact patient to schedule as she has an urgent medical condition and there are no slots open to schedule her. Normal [facility] CT FACIAL BONES WO W CONon 0 05-25-2022 CT FACIAL BONES WO W CON EXAMINATION: CT FACIAL BONES WO W CON HISTORY: Mass of head ; lump on left side of nose COMPARISON: No relevant comparison available. TECHNIQUE: Axial, Coronal, and Sagittal CT images created with IV contrast. Dose reduction techniques were achieved by using automated exposure control and/or adjustment of mA and/or kV according to patient size and/or use of iterative reconstruction technique. FINDINGS: FACIAL BONES: 1.9 cm rounded expansile lesion within anterior maxilla just left of midline which expands into anterior lower left nasal passageway and left nasal bone, without involvement of the maxillary sinus. Nonenhancing to minimally enhancing low-density contents within the lesion, likely proteinaceous fluid. No appreciable tear within the lesion. SINUSES: No visible mass, significant fluid or mucosal thickening. NASAL FOSSA: No mass, fracture, or significant septal deviation. SKULL BASE: No mass or bone destruction. ORBITS: No visible mass, hematoma, edema or fracture. OTHER: No lymphadenopathy. Unremarkable nasopharynx, oropharynx, and oral cavity. IMPRESSION: 1. Nonspecific expansile lesion arising from superior aspect of anterior left maxilla with partial destruction of the maxilla, except for the roots of the teeth which extend into the lesion. Mass protrudes into anterior base of left nasal passageway. Expansile abscess versus tumor? ENT consultation is recommended. Electronically authenticated by: JUAN NELSON Date: 2022-05-25 11:31 Normal [facility] XR SINUSES 3 VIEWS OR [facility] 03-19-2022 XR SINUSES 3 VIEWS OR GREATER EXAMINATION: XR SINUSES 3 VIEWS OR GREATER HISTORY: Sinusitis ; pain under left eye for one year COMPARISON: XR sinuses 12/26/2021 FINDINGS: MAXILLARY: No mucosal thickening or fluid level. ETHMOID: No mucosal thickening or fluid level. FRONTAL: No developed frontal sinuses. SPHENOID: No mucosal thickening or fluid level. OTHER: Negative. IMPRESSION: 1. No evidence of acute or chronic sinusitis. Electronically authenticated by: JUAN NELSON Date: 2022-03-19 17:56 Normal [facility] XR SINUSES 3 VIEWS OR [facility] 12-29-2021 XR SINUSES 3 VIEWS OR GREATER EXAMINATION: XR SINUSES 3 VIEWS OR GREATER HISTORY: Swelling over maxillary sinus COMPARISON: No relevant comparison available. FINDINGS: MAXILLARY: No mucosal thickening or fluid level. ETHMOID: No mucosal thickening or fluid level. FRONTAL: Absent frontal sinuses. SPHENOID: No mucosal thickening or fluid level. OTHER: Negative. IMPRESSION: 1. No appreciable acute or significant chronic sinusitis. Consider follow-up CT imaging of the sinuses for greater diagnostic sensitivity if clinically indicated. Electronically authenticated by: JUAN NELSON Date: 2021-12-29 06:32 Normal [facility] Vital Signs Date Time Vital Sign Value Performing Clinician Faci lity 12-07-2022 11:44-0400 Diastolic blood pressure 90 mm[Hg] Brenda Cordoba DMD, MD Work Phone: [facility] 12-07-2022 11:44-0400 Heart rate 82 /min Mahad Bell DMD Work Phone: [facility] 12-07-2022 11:44-0400 Respiratory rate 15 /min Brenda Cordoba DMD Mahad D Work Phone: [facility] 12-07-2022 11:44-0400 SaO2% (BldA) [Mass fraction] 99 % Brenda Cordoba DMD, MD Work Phone: [facility] 12-07-2022 11:44-0400 Systolic blood pressure 132 mm[Hg] [facility]arson [facility] 12-07-2022 10:52-0400 Body temperature 97.9 [degF] Brenda Cordoba DMD Mahad D [facility] 12-07-2022 09:08-0400 Body height 165.1 cm Brenda Cordoba DMD Mahad D [facility] 12-07-2022 09:08-0400 Body mass index (BMI) [Ratio] 24.96 kg/m2 Brenda Cordoba DMD, MD [facility] 12-07-2022 09:08-0400 Body weight 68.04 kg Brenda Cordoba DMD Mahad Larson [facility] 10-16-2022 09:15-0400 Diastolic blood pressure 84 mm[Hg] Brenda Cordoba DMD, MD [facility] 10-16-2022 09:15-0400 Systolic blood pressure 129 mm[Hg] Brenda Larson MD [facility] 10-16-2022 09:13-0400 Body height 165.1 cm Brenda Cordoba DMD Mahad Larson Work Phone: [facility] 10-16-2022 09:13-0400 Heart rate 93 /min Brenda Cordoba DMD Mahad D [facility] 10-16-2022 09:13-0400 Respiratory rate 20 /min Brenda Cordoba DMD Mahad D Work Phone: [employer] 10-16-2022 09:13-0400 SaO2% (BldA) [Mass fraction] 100 % Brenda Cordoba DMD, MD Work Phone: [facility] 08-21-2022 13:27-0400 Diastolic blood pressure 80 mm[Hg] Brenda Cordoba DMD, MD Work Phone: [facility] [employer] 08-21-2022 13:27-0400 Heart rate 75 /min Mahad Bell DMD Work Phone: [facility] [employer] 08-21-2022 13:27-0400 Systolic blood pressure 132 mm[Hg] Brenda Larson MD [facility] 08-21-2022 13:25-0400 Body height 165.1 cm Mahad Bell DMD [facility] 08-21-2022 13:25-0400 Body mass index (BMI) [Ratio] 27.46 kg/m2 Brenda Cordoba DMD, MD [facility] 08-21-2022 13:25-0400 Body weight 74.84 kg Mahad Bell DMD Work Phone: [facility] Encounters Encounter Date Encounter Type Care Provider Facility Start: 10-24-2023 End: 10-24-2023 Letter encounter Brenda Cordoba DMD, MD [facility] Start: 04-07-2023 End: 04-12-2023 ambulatory UNKNOWN PROVIDER Facility:[facility] Start: 04-07-2023 End: 04-07-2023 Patient encounter procedure Brenda Cordoba DMD, MD [facility] Comment on above: Periapical cyst (Shari karen Dx) Start: 04-05-2023 Telephone encounter Brenda ballard DMD, MD [facility] Start: 12-14-2022 ambulatory UNKNOWN PROVIDER Facili ty:[facility] Start: 12-14-2022 End: 12-14-2022 Patient encounter procedure Brenda Cordoba DMD, MD Work Phone: [facility] Oral Surgery Comment on above: Post-operative state (Primary Dx) Start: 12-07-2022 End: 12-07-2022 ambulatory BRENDA CORDOBA Facility:[facility] Start: 12-07-2022 End: 12-07-2022 Subsequent hospital visit by physician Brenda Cordoba DMD, MD Work Phone: [facility] Comment on above: Cystic lesion of max illa determined by X-ray (Primary Dx); Impacted teeth Start: 11-24-2022 ambulatory UNKNOWN PROVIDER Facili ty:[facility] Start: 11-24-2022 Encounter for other preprocedural examination UNKNOWN PROVIDER [facility] Start: 10-19-2022 Letter encounter Brenda Cordoba DMD, MD Work Phone: [facility] Oral Surgery Start: 10-16-2022 End: 10-19-2022 ambulatory UNKNOWN PROVIDER Facility:[facility] Start: 10-16-2022 End: 10-19-2022 Patient encounter procedure Brenda Cordoba DMD, MD Work Phone: [facility] Oral Surgery Comment on above: Cystic lesion of max illa determined by X-ray (Primary Dx) Cystic lesion of max illa determined by X-ray (Primary Dx); Body mass index (BMI) 27.0-27.9, adult Start: 08-21-2022 End: 08-21-2022 Patient encounter procedure Brenda Cordoba DMD, MD Work Phone: [facility] Oral Surgery Comment on above: Abnormal tooth erupt ion (Primary Dx) Abnormal tooth erupt ion (Primary Dx); Body mass index (BMI) 27.0-27.9, adult Start: 08-21-2022 End: 08-21-2022 ambulatory UNKNOWN PROVIDER Facility:[facility] Start: 05-25-2022 End: 05-26-[address] TAMARA HAIDER Facility:[facility] Start: 05-15-2022 ambulatory JADEN SCALES Facility:[facility] Start: 03-19-2022 End: 03-20-[address] JADEN SCALES . Facility: Start: 12-26-2021 End: 12-27-[address] JADEN SCALES . Facility: Procedures Date Procedure Procedure Detail Performing Clinician Start: 12-07-2022 Urine test visual color cmprsn meths Gurdeep Cortes MD, DDS Work Phone: Start: 10-16-2022 Level iv surg pathol ogy gross&microscopic exam Gurdeep Cortes MD, DDS Work Phone: Start: 10-16-2022 Biopsy bone open superficial Gurdeep Cortes MD, DDS Work Phone: Start: 08-21-2022 panoramic radiograph ic image Misael Mariluz [facility] Work Phone: Plan of Treatment Date Care Activity Detail Author Start: 2047 Shingles (RZV) Vacci ne (1 of 2) Shingles (RZV) Vaccine (1 of 2) [facility] Start: 12-07-2023 Influenza vaccination Influenz a Vaccine (#1) [facility] Start: 09-02-2023 End: 09-02-2023 Patient encounter procedure 09/02/2023 10:40 AM EDT Procedure Visit [facility] [address] [place] [address] Miguel Angel Lee, DDS [address] [place] [address] [facility] Start: 04-07-2023 End: 04-07-2023 Patient encounter procedure 04/07/2023 11:00 AM EST Office Visit [facility] Oral Surgery [address] [place] [address] Brenda Cordoba DMD, MD [address] [place] [address] [facility] Oral Surgery Start: 12-14-2022 End: 12-14-2022 Patient encounter procedure [facility] Oral Surgery Start: 12-07-2022 End: 12-07-2022 Admission to same day surgery center 12/07/2022 1:18 PM EDT - 12/07/2022 2:43 PM EDT Surgery [facility] Ambulatory Surgery [address] [place] [id number] Brenda Cordoba DMD, MD [address] [place] [id number] EXCISION CYST [facility] Surgery Comment on above: EXCISION CYST Start: 12-07-2022 End: 12-07-2022 Exc benign tumor/cyst maxl/zygoma encl & curtg EXCISION CYST Routine scheduled Cystic lesion of maxilla determined by X-ray 12/07/2022 1:18 PM EDT [facility] Surgery [place] Start: 12-07-2022 Subsequent hospital visit by physician 12/07/2022 1:18 PM EDT Hospital Encounter [facility] Ambulatory Surgery [address] [place] [id number] Brenda Cordoba DMD, MD [address] [place] [address] [facility] Ambulatory Surgery Start: 12-07-2022 End: 12-07-2022 Exc benign tumor/cyst maxl/zygoma encl & curtg EXCISION CYST Routine scheduled Cystic lesion of maxilla determined by X-ray 12/07/2022 9:27 AM EDT [address] [facility] [place] Start: 12-06-2022 Influenza vaccination Influenz a Vaccine (#1) [facility] Start: 11-24-2022 End: 11-24-2022 Nursing evaluation of patient and report 11/24/2022 9:30 AM EDT Nurse Visit [facility] Pre Surgical Evaluation [address] [place] [address] [facility] Pre Surgical Evaluation Start: 11-06-2022 COVID-19 Vaccine () COVID-19 Vaccine () [facility] Start: 11-06-2022 Influenza vaccination Influenz a Vaccine (#1) [facility] Start: 10-16-2022 End: 10-16-2022 Patient encounter procedure 10/16/2022 9:00 AM EDT Office Visit [facility] Oral Surgery [address] [place] [address] Brenda Cordoba DMD, MD [address] [place] [address] [facility] Oral Surgery Start: 06-02-2021 COVID-19 Vaccine (2 - Booster for Moderna series) COVID-19 Vaccine (2 - Booster for Moderna series) [facility] Start: 06-02-2021 COVID-19 Vaccine (3 - Moderna series) COVID-19 Vaccine (3 - Moderna series) [facility] Start: 2018 Screening for malign ant neoplasm of cervix Pap Smear [facility] Start: 2016 Hepatitis A (HAV) Va ccine (optional start 19+ years) Hepatitis A (HAV) Vaccine (optional start 19+ years) [facility] Start: 2016 Hepatitis B vaccination Hepati tis B (HBV) Vaccine (1 of 3 - 19+ 3-dose series) [facility] Start: 2015 Hepatitis C screening Hepatitis C An tibody [facility] Start: 2015 Tetanus + diphtheria + acellular pertussis vaccine (product) Tdap Booster [facility] Start: 2012 HIV screening HIV Test [facility] Start: 2012 Vaccination for christian n papillomavirus HPV Vaccine (1 - 3-dose series) [facility] Start: 2008 Vaccination for christian n papillomavirus [facility] Start: 1997 COVID-19 Vaccine ( formulation) COVID-19 Vaccine ( formulation) [facility] Start: 1997 Hepatitis B vaccination Hepati tis B (HBV) Vaccine (1 of 3 - 3-dose series) [facility] Exc benign tumor/cys t maxl/zygoma encl & curtg EXCISION CYST Routine scheduled Cystic lesion of maxilla determined by X-ray [facility] Exc benign tumor/cys t maxl/zygoma encl & curtg EXCISION CYST Routine scheduled Cystic lesion of maxilla determined by X-ray [facility] Exc benign tumor/cys t maxl/zygoma encl & curtg EXCISION, BENIGN TUMOR/CYST MAXILLA/ZYGOMA, ENUCLEATION AND CURETTAGE Procedures Routine Cystic lesion of maxilla determined by X-ray Ordered: 12/07/2022 [facility] [facility] Comment on above: Ordered: 12/07/2022 extraction, erupted tooth or exposed root (elevation and/or forceps removal) EXTRACTION ERUPTED TOOTH/EXR Procedures Routine Cystic lesion of maxilla determined by X-ray Ordered: 12/07/2022 [facility] Comment on above: Ordered: 12/07/2022 removal of impacted tooth - completely bony FULL BONY IMPACTION Procedures Routine Impacted teeth Ordered: 12/07/2022 [facility] [employer] Comment on above: Ordered: 12/07/2022 Surgical pathology procedure [facility] Work Phone: Comment on above: Ordered: 10/16/2022 Surgical pathology procedure SPECIMEN FOR SURGICAL PATH Anatomic Pathology Routine Cystic lesion of maxilla determined by X-ray Release Upon Ordering for 1 Occurrences starting 12/07/2022 [facility] Work Phone: Comment on above: Release Upon Orderin g for 1 Occurrences starting 12/07/2022 Immunizations Immunization Date Immunization Notes Care Provider [facility] 02-01-2023 Influenza, injectabl e, Madin [place] Canine Kidney, preservative free, quadrivalent Brenda Cordoba DMD, MD Work Phone: [facility] 02-01-2023 influenza virus vacc ine, unspecified formulation Brenda Cordoba DMD, MD Work Phone: [facility] 04-07-2021 Moderna Monovalent ( 12+ yrs) COVID-19 vaccine, mRNA, spike protein, LNP, PF, 100 mcg/0.5 mL (OBS=513) Brenda Cordoba DMD, MD Work Phone: [facility] 07-09-2020 Moderna Monovalent ( 12+ yrs) COVID-19 vaccine, mRNA, spike protein, LNP, PF, 100 mcg/0.5 mL (JFE=653) Brenda Cordoba DMD, MD Work Phone: [facility] 01-31-2020 Influenza, injectabl e, Madin [place] Canine Kidney, preservative free, quadrivalent Brenda Cordoba DMD, MD Work Phone: [facility] 01-31-2020 influenza virus vacc ine, unspecified formulation Brenda Cordoba DMD, MD Work Phone: [facility] Payers Date Payer Category Payer Medicaid [id number] 2018 Unknown [id number] 1997 Unknown [id number] 2.16.8 [id number] 1997 Unknown [id number] 2.16.84 [id number] 1997 Unknown [id number] 2.16.84 [id number] 1997 Unknown [id number] 2.16.84 [id number] 1997 Unknown [id number] 2.16. [id number] 1997 Unknown [id number] 2.16. [id number] 1997 Unknown [id number] 2.16. [id number] 1997 Unknown [id number] 2.16. [id number] 1997 Unknown [id number] 2.16. [id number] 1997 Unknown [id number] 2.16. [id number] 1959 Unknown [id number] 1959 Unknown [id number] Self-pay Social History Date Type Detail Facility Start: 08-21-2022 Tobacco smoking status NHIS Never sm oked tobacco [facility] Start: 08-21-2022 Tobacco use and exposure Smokeless t obacco non-user [facility] Start: 1997 Sex Assigned At Not on file [facility] Start: 11-24-2022 End: 12-14-2022 Gender identity Not on file [facility] Start: 11-24-2022 End: 12-14-2022 Alcohol intake Lifetime non-drinker (finding) [facility] Start: 11-24-2022 End: 12-14-2022 History of Social function [facility] Within the last year , have you been afraid of your partner or ex-partner? No [facility] In a typical week, h ow many times do you talk on the telephone with family, friends, or neighbors? Patient declined [facility] Are you now , , , , never or living with a partner? Living with partner [facility] Start: 12-14-2022 Education 12 [facility] Clinical Notes 07-30-2022 to 04-07-2023 Clinton Cali DDS - 04/07/2023 12:05 PM Joseline Solorznao - 04/07/2023 11:24 AM ESTTelephone Encounter - Jeanette Gonzales - 04/05/2023 9:07 AM Brenda James DMD, MD - 12/14/2022 12:38 PM EDT Note Date & Type Note Facility 04-07-2023 History of Present illness Narrative ORAL SURGERY CLINIC FOLLOW UP VISIT Chief Complaint: Pt presents for follow up. History of present illness: 27 yrs old White female 4 months s/p removal of cyst in maxilla. Patient's chief complaint is that when she presses on her left nose, #9 hurts. Patient has no complaint with #11. Patient denies fever, chills, odynophagia, dysphagia, and shortness of breath. Review of Systems: no change Physical findings: Incisions are fully epithelialized Sutures: no longer present No purulence or erythema noted No signs or symptoms of infection Maximum interincisal opening is ~40 No V3 hypoesthesia Occlusion stable and reproducible Assessment / Diagnosis: Periapical cyst [[id number]] 27 yrs old White female 4 months s/p removal of cyst in maxilla. Patient's chief complaint is that when she presses on her left nose, #9 hurts. Patient has no complaint with #11. It is unlikely that the pain is due to the residual tissue as the left nose area is significantly further up from the area of the cyst removal. Patient also informed that she would likely need root canal treatment on #11, as it is devitalized, and possibly re-treatment for #9. Patient had been given the run-around by her general dentist, and was given a referral to [facility] for evaluation and treatment of #11. Normal postoperative course. Healing as expected. Case seen and discussed with Dr. Cordoba Plan: Follow-Up: PRN Follow up sooner with new or worsening symptoms. Images from the original note were not included. documented in this encounter [facility] 04-05-2023 Telephone encounter Note Patient calling back in. Relayed message patient stated the Am time from 9 am to 11:30 am would work best. Please reach out to her to assist. Phone numbers [facility] 04-05-2023 Miscellaneous Notes Patient calling back in. Relayed message patient stated the Am time from 9 am to 11:30 am would work best. Please reach out to her to assist. Phone numbers Called pt to get scheduled for a f/u appt on 04/[address]Clemow. Buckley stating she can come in any time between 9am-11:30am or 1-330pm documented in this encounter [facility] 04-05-2023 Telephone encounter Note Called pt to get scheduled for a f/u appt on 04/[address]Clemow. Buckley stating she can come in any time between 9am-11:30am or 1-330pm [facility] 12-14-2022 History of Present illness Narrative Teaching Physician Note: I saw and evaluated the patient. I personally obtained the don and critical portions of the history and physical exam. I reviewed the resident's documentation and discussed the patient with the resident. I agree with the resident's medical decision making as documented in the resident's note. Brenda Cordoba DMD, MD Patient is a 27 y/o F who presents for f/u following extractions of #1 16 17 and 32, routine extraction of #10; E&C of UL anterior maxillary lesion under general anesthesia one week ago. She reports that he has minimal to no pain in the areas of surgery. She denies any dysphagia, odynophagia fever or chills. 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 CN V and VII intact b/l Sites of extractions healing WNL Sutures intact w/o any evidence of dehiscence FEROZ 30 mm however, able to open to 35 mm gentle stretching No gross mobility of the anterior maxillary teeth noted Patient is a 27 y/o F who presents for f/u following extractions of #1 16 17 and 32, routine extraction of #10; E&C of UL anterior maxillary lesion under general anesthesia one week ago. Patient appears to be following normal post-operative course. It is important to note that we discussed that given the involvement of the dentigerous cyst turned periapical cyst around #11, vitality of the tooth is questionable and with guarded prognosis may necessitate root canal treatment in the future however this can be done with patient's dentist. Although there is no gross mobility of the anterior maxillary teeth, its still in the patient's best interest to ensure soft diet during the healing process as the bone at the anterior maxilla is weak d/t obvious reasons. Finally we discussed gentle stretching of the jaw to improve FEROZ and that a bridge would be the ideal restorative option to replace #10 d/t the quality of bone in the area in the setting of cystic involvement. Plan F/u as needed documented in this encounter [facility] 12-14-2022 History of Present illness Narrative Patient is a 27 y/o F who presents for f/u following extractions of #1 16 17 and 32, routine extraction of #10; E&C of UL anterior maxillary lesion under general anesthesia one week ago. She reports that he has minimal to no pain in the areas of surgery. She denies any dysphagia, odynophagia fever or chills. 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 CN V and VII intact b/l Sites of extractions healing WNL Sutures intact w/o any evidence of dehiscence FEROZ 30 mm however, able to open to 35 mm gentle stretching No gross mobility of the anterior maxillary teeth noted Patient is a 27 y/o F who presents for f/u following extractions of #1 16 17 and 32, routine extraction of #10; E&C of UL anterior maxillary lesion under general anesthesia one week ago. Patient appears to be following normal post-operative course. It is important to note that we discussed that given the involvement of the dentigerous cyst turned periapical cyst around #11, vitality of the tooth is questionable and with guarded prognosis may necessitate root canal treatment in the future however this can be done with patient's dentist. Although there is no gross mobility of the anterior maxillary teeth, its still in the patient's best interest to ensure soft diet during the healing process as the bone at the anterior maxilla is weak d/t obvious reasons. Finally we discussed gentle stretching of the jaw to improve FEROZ and that a bridge would be the ideal restorative option to replace #10 d/t the quality of bone in the area in the setting of cystic involvement. Plan F/u as needed documented in this encounter [facility] 12-07-2022 Hospital Discharge instructions Saurabh Marquez RN - 12/07/2022 10:53 AM EDT Dental extraction Instructions Biting on Gauze to Control Bleeding Bleeding may occur for some time after you extraction. In most cases this bleeding can be easily controlled by placing a piece of clean gauze DIRECTLY over the empty tooth socket. Then make sure that you bite firmly on this gauze for 30 to 60 minutes. Use the gauze we supplied to you in the bag. Wash your hands with soap and water before touching the gauze and placing it in your mouth. Place the used gauze from your mouth in a plastic bag and dispose the bag in a trash container. Make sure to wash your hands again when you are done touching the used gauze and before touching anything else. If a small amount of bleeding continues after 45 minutes then repeat these instructions. Sometimes biting a tea bag may be helpful in controlling minor bleeding. Very light bleeding for 2 days is not uncommon. If heavy bleeding is still persistent during normal clinic hours than call the Clinic where the extraction was done to speak with an oral surgeon. [facility] [phone]. HELPING THE HEALING PROCESS AND STOPPING THE BLEEDING FOR THE NEXT 24 HOURS (1 DAY) AFTER THE EXTRACTION: DO NOT RINSE YOUR MOUTH OR SPIT 2. DO NOT DRINK ANY HOT LIQUIDS SUCH SOUP, COFFEE, TEA, HOT CHOCOLATE AVOID HEAVY LIFTING, BENDING OR OTHER STENUOUS EXERCISES SLEEP WITH 2 PILLOWS OR IN A RECLINER CHAIR. KEEPING HEAD ELEVATED WILL REDUCE SWELLING. SUTURE WILL DISSOLVE IN 7-10 DAYS FOR THE NEXT 72 HOURS (3 DAYS) AFTER THE EXTRACTION: DO NOT SMOKE OR DRINK ALCOHOL DO NOT DRINK OR SUCK FROM A STRAW OR ANYTHING ELSEDO NOT DRINK. Stitches may have been placed to help healing. Your surgeon will advise you if you need to return to have them removed. TOOTH BRUSHING On the day of the extraction it is best to avoid brushing the teeth right next to the extraction site. On the next day you can start brushing ALL your teeth but in a gentle fashion. Remember to not rinse strongly because it may cause you to start bleeding from the extraction site again. SWELLING AND PAIN After the extraction you may feel some pain and experience some swelling. An ice pack of unopened bag of frozen peas of corn applied to the area should keep the swelling down. Put the ice pack on you face for 10 minutes and then leave it off for the next 20 minutes. You can repeat this patter as you feel is necessary for up to 24 hours after the extraction. To avoid injury, make sure that adults or children avoid biting or chewing on their lips of cheeks, which may be numb following an extraction. If your pain or swelling seems to be getting worse or you feel as though something is not right then call your dentist, as directed above. ANTIBIOTICS AND PAIN MEDICATION If antibiotics have been prescribed then you should take them as directed; this includes taking all the antibiotic (or liquid) pills that were prescribed. If you don't finish them completely a serious infection could result. You may have little of no discomfort after the extraction. If you have minor pain then you may want to take acetaminophen (Tylenol) or ibuprofen (Motrin). It is very important that before taking any medications that you read and follow the directions and warnings that come with these products so you know whether they are right for you and you situation. If you have any questions on whether these medications are right for you, first talk to your doctor or pharmacist before taking the medication. Your surgeon may have given you a written prescription for pain relief. It is important that if you decide to take it you read and understand all the precautions, warnings and directions that come with the medication. If you have any questions on whether the medication is right for you, first talk to your doctor or pharmacist before taking the medication. The pain medication prescription that your dentist gave you may contain a narcotic (like codeine). If so, most narcotic pain medications may upset your stomach. If so, then it is best to take them with food. The pain medication prescription that you were given can also make you drowsy or make you act strangely. If so, you should limit or stop activities such as driving a motor vehicle, operate machinery or other activities that require your full attention. EATING AND DRINKING A soft or liquid diet may be best for you after a difficult extraction. For a simpler extraction just make sure you do your chewing with those teeth that are NOT near the extraction site. POSTOPERATIVE INSTRUCTION AFTER SEDATION / GENERAL ANESTHESIA If you had general anesthesia of IV sedation, do not drive or operate machinery for 24 hours. A responsible adult should be with you for the remainder of the day. When starting oral intake, be sure to consume CLEAR LIQUIDS first. Clear liquids consist of water, Sprite, martha julius, Jell-O, and non-pulp containing juices such as cranberry and apple juice. Once tolerating clear-liquids, you may advance your diet. Be sure to follow the specific diet instructions from your doctor according to the type of surgery you have had. It is important that you take any narcotic containing pain medications with food. Patients should not participate in any strenuous activity. Standing and sitting up too quickly following surgery can also result in dizziness and exacerbate these problems. It is also important that patients be supervised for an appropriate amount of time following sedation in order to ensure that they remain safe in the post-operative period. Under NO circumstances should a patient drive the day of surgery or participate in any important decisions. NAUSEA & VOMITING Nausea is not uncommon after surgery. Sometimes pain medications may be the cause. In the event of nausea and/or vomiting following surgery, do not take anything by mouth for at least an hour including the prescribed medicine. You should then sip on Coke, tea, or martha julius. You should sip slowly over a 15-minute period. When the nausea subsides, you can begin taking solid foods and the prescribed medicine. You may take the anti-nausea medication if prescribed. If the above is not helpful, contact your surgeon. Please if you have any questions or concerns please contact us: [facility] . Ask for the oral hygienist nutritional services cook (after hours). surgery attendant Clinic Hours: Mon-Fri 8:30 am to 4:30 pm. PERIOPERATIVE DISCHARGE/HOME-GOING INSTRUCTIONS ANESTHESIA - GENERAL (ADULT) If a problem arises, you may contact your physician by calling [phone] and asking for the resident nutritional services cook for oral surgery service. Special Care Needs: Activity: Rest at home today and tomorrow, then progress to your regular activities as tolerated. Diet: Clear liquids are best tolerated at first. If you are not nauseated, you can progress your diet to solid foods as tolerated. Possible post-operative precautions: Call you doctor or clinic for: 1. Signs of infection such as fever or chills. 2. Severe pain that in not relieved by Tylenol or your pain medicine prescription. 3. You may have a sore throat - it is usually gone in 1 to 2 days. Post-anesthesia safety: Possible side effects include drowsiness, dizziness, or inability to think clearly. For your safety, do not drive, drink alcoholic beverages, take any unprescribed medication or make any important decisions for 24 hours. A responsible adult should be with you for 24 hours. If no urine by 8pm or you become very uncomfortable and can t urinate, call [phone] or come to the emergency room. The day after surgery, a nurse will call to check on you. However, if there are any questions or concerns, please call us at the number listed in the home going instructions. documented in this encounter [facility] 12-07-2022 Miscellaneous Notes [facility] Division of virtualization engineer [address] [place] [address] Dr. MayberryMary Ville [id number] OPERATIVE NOTE Name: Comfort Victoria MR#: [id number] ENC#: Data Unavailable Surgical Case #: Data Unavailable Date of Procedure: 12/07/2022 ? PREOPERATIVE DIAGNOSIS: Cystic lesion of maxilla determined by X-ray (Primary Diagnosis) [[id number]] Impacted teeth [[id number]] ? POSTOPERATIVE DIAGNOSIS: Cystic lesion of maxilla determined by X-ray (Primary Diagnosis) [[id number]] Impacted teeth [[id number]] OPERATION: FULL BONY IMPACTION [D7240] EXTRACTION ERUPTED TOOTH/EXR [D7140] EXCISION, BENIGN TUMOR/CYST MAXILLA/ZYGOMA, ENUCLEATION AND CURETTAGE [[id number]] ? ATTENDING SURGEON: Brenda Cordoba ? FIRST SURGEON: Brenda Cordoba DMD, MD ? SECOND SURGEON: Sam Botello? ANESTHESIA: General anesthesia via oral endotracheal tube intubation supplemented with 20 mL of a 50/50 mixture of 1% lidocaine with 1:100,000 epinephrine and 0.5% Marcaine. ? SPECIMENS: cyst left maxilla ? ESTIMATED BLOOD LOSS: 30 mL. ? IV FLUIDS: 1000 mL. ? FINDINGS: large cyst left anterior maxilla. Extends up to the nasal floor with disruption of the piriform rim. Apices of tooth #9,10,11 all extend into the cystic cavity, but tooth #10 is centered in the cyst.. ? DESCRIPTION OF OPERATION: The patient was taken to the operating room on a cart and transferred onto the operating room table under thiQuincee own power. The patient was then placed in the supine position. A time-out was conducted to confirm correct patient and procedure to be performed. Anesthesia team, Surgical staff and Nursing team all agreed on correct patient and laterality of the procedure. At this time care of the patient was transferred over to the Anesthesia Service for induction of general anesthetic and intubation. The patient was intubated via oral endotracheal tube intubation. The tube was secured and care of the patient was transferred back to the Oral Maxillofacial Surgery service for continuation of the procedure. The patient was then prepped and draped in usual sterile fashion and the oral cavity was suctioned clear and A throat pack placed deep in the oropharynx. Routine extraction tooth #7 Teeth numbers #'s 1, 16 were full bony impactions Surgical access and exposure was accomplished by a buccal FTF 45 hockey stick incision. Alveolar bone removal was accomplished with periosteal elevator and/or straight dental elevator. The teeth were sectioned into 1 pieces. The teeth and/or fragments were removed by elevator technique. Surgical debris and remaining epithelial fragments were removed by rongeurs. Teeth numbers #'s 17, 32 were full bony impactions Surgical access and exposure was accomplished by a buccal FTF 45 hockey stick incision. Alveolar bone removal was accomplished with a cat drill and irrigation.. The teeth were sectioned into 2 pieces. The teeth and/or fragments were removed by elevator technique. Surgical debris and remaining epithelial fragments were removed by rongeurs. The wounds were irrigated with sterile saline. Mucogingival wound closure utilized 3-0 Chromic interrupted sutures. A sulcular incision was performed from tooth #8-12 with vertical releases bilaterally. A buccal flap was elevated. This was subperiosteal around the periphery of the lesion, and partial thickness over the cystic area. The cyst was then enucleated from the surrounding bone, and dissected off of the nasal mucosa, which is intact. There is violation of the piriform rim inferolaterally. The cavity was evaluated, and decision to leave tooth #9,11. Both of these teeth are compromised, with guarded prognosis, but may be salvageable (although #11 will need root canal, which patient is aware of). The cavity was packed with gelfoam, and closure 3-0 chromic gut. The oral cavity was suctioned clear and the throat pack was removed. After wound closure was accomplished care of the patient was transferred back to the Anesthesia Service for emergence from the general anesthetic and extubation. The patient was extubated without incidence and transferred back to a cart where he was taken to the Post Anesthesia Care Unit for further monitoring. The patient was stable during the entire procedure. There were no complications. Dr. Cordoba was present for all critical parts of the procedure. ? ? ? Brenda Cordoba DMD, MD documented in this encounter [facility] 12-07-2022 Surgery Surgical operation note [facility] Division of virtualization engineer [address] [place] [address] Dr. [place], [place] [address] OPERATIVE NOTE Name: Comfort Victoria MR#: [id number] ENC#: Data Unavailable Surgical Case #: Data Unavailable Date of Procedure: 12/07/2022 ? PREOPERATIVE DIAGNOSIS: Cystic lesion of maxilla determined by X-ray (Primary Diagnosis) [[id number]] Impacted teeth [[id number]] ? POSTOPERATIVE DIAGNOSIS: Cystic lesion of maxilla determined by X-ray (Primary Diagnosis) [0739953] Impacted teeth [[id number]] OPERATION: FULL BONY IMPACTION [D7240] EXTRACTION ERUPTED TOOTH/EXR [D7140] EXCISION, BENIGN TUMOR/CYST MAXILLA/ZYGOMA, ENUCLEATION AND CURETTAGE [21784] ? ATTENDING SURGEON: Brenda Cordoba ? FIRST SURGEON: Brenda Cordoba DMD, MD ? SECOND SURGEON: Sam Botello? ANESTHESIA: General anesthesia via oral endotracheal tube intubation supplemented with 20 mL of a 50/50 mixture of 1% lidocaine with 1:100,000 epinephrine and 0.5% Marcaine. ? SPECIMENS: cyst left maxilla ? ESTIMATED BLOOD LOSS: 30 mL. ? IV FLUIDS: 1000 mL. ? FINDINGS: large cyst left anterior maxilla. Extends up to the nasal floor with disruption of the piriform rim. Apices of tooth #9,10,11 all extend into the cystic cavity, but tooth #10 is centered in the cyst.. ? DESCRIPTION OF OPERATION: The patient was taken to the operating room on a cart and transferred onto the operating room table under thier own power. The patient was then placed in the supine position. A time-out was conducted to confirm correct patient and procedure to be performed. Anesthesia team, Surgical staff and Nursing team all agreed on correct patient and laterality of the procedure. At this time care of the patient was transferred over to the Anesthesia Service for induction of general anesthetic and intubation. The patient was intubated via oral endotracheal tube intubation. The tube was secured and care of the patient was transferred back to the Oral Maxillofacial Surgery service for continuation of the procedure. The patient was then prepped and draped in usual sterile fashion and the oral cavity was suctioned clear and A throat pack placed deep in the oropharynx. Routine extraction tooth #7 Teeth numbers #'s 1, 16 were full bony impactions Surgical access and exposure was accomplished by a buccal FTF 45 hockey stick incision. Alveolar bone removal was accomplished with periosteal elevator and/or straight dental elevator. The teeth were sectioned into 1 pieces. The teeth and/or fragments were removed by elevator technique. Surgical debris and remaining epithelial fragments were removed by rongeurs. Teeth numbers #'s 17, 32 were full bony impactions Surgical access and exposure was accomplished by a buccal FTF 45 hockey stick incision. Alveolar bone removal was accomplished with a cat drill and irrigation.. The teeth were sectioned into 2 pieces. The teeth and/or fragments were removed by elevator technique. Surgical debris and remaining epithelial fragments were removed by rongeurs. The wounds were irrigated with sterile saline. Mucogingival wound closure utilized 3-0 Chromic interrupted sutures. A sulcular incision was performed from tooth #8-12 with vertical releases bilaterally. A buccal flap was elevated. This was subperiosteal around the periphery of the lesion, and partial thickness over the cystic area. The cyst was then enucleated from the surrounding bone, and dissected off of the nasal mucosa, which is intact. There is violation of the piriform rim inferolaterally. The cavity was evaluated, and decision to leave tooth #9,11. Both of these teeth are compromised, with guarded prognosis, but may be salvageable (although #11 will need root canal, which patient is aware of). The cavity was packed with gelfoam, and closure 3-0 chromic gut. The oral cavity was suctioned clear and the throat pack was removed. After wound closure was accomplished care of the patient was transferred back to the Anesthesia Service for emergence from the general anesthetic and extubation. The patient was extubated without incidence and transferred back to a cart where he was taken to the Post Anesthesia Care Unit for further monitoring. The patient was stable during the entire procedure. There were no complications. Dr. Cordoba was present for all critical parts of the procedure. ? ? ? Brenda Cordoba DMD, MD [facility] 10-19-2022 History of Present illness Narrative Teaching Physician Note: I saw and evaluated the patient. I personally obtained the don and critical portions of the history and physical exam. I reviewed the resident's documentation and discussed the patient with the resident. I agree with the resident's medical decision making as documented in the resident's note. Will plan for definitive enucleation and curettage of left maxillary cyst, and likely extraction of tooth/teeth at [facility], pending path. Brenda Cordoba DMD, MD ORAL SURGERY CLINIC PROCEDURE NOTE [facility] Surgical Product(s): Biopsy of left anterior maxillary lesion PMH: Reviewed, no change. Antibiotic prophylaxis indicated/taken: not applicable Discussed risks, benefits, and alternatives of treatment. All of the patient s questions were answered, and informed consent was obtained: yes Pre-op Diagnosis: Maxillary bony lesion PROCEDURE TIME OUT CHECK LIST Radiograph is correctly matched to the patient,diagnostic quality, correctly oriented for laterality: Yes Time out performed confirming correct surgical site and/or involved teeth verified by the patient and the surgeon: Yes Anesthesia: 3x1.8cc of 4% articaine 1:100,000 epinephrine 1x1.8cc of 0.5% bupivacaine 1:200,000 epinephrine Attending: Brenda Cordoba DMD, MD Resident: Gurdeep Cortes DDS, MD PROCEDURE: Local anesthesia administered via local infiltration to site of intended extraction. Soft tissue released and FTMP flap created around teeth #9-11 with a distal vertical release around tooth #11. A FTMP flap was elevated to expose the lesion, which was easily accessible through the thin facial bone. Rongeur used to remove a portion of the lesion, which was sent for pathology evaluation. Placed 3-0 chromic gut suture to re-approximate tissue primarily. Sites hemostatic. Gauze placed over extraction sites. Complications: none Specimens: none Estimated blood loss: Minimal (<5 ml) Disposition: Home Plan: - FU Biopsy Results - Scheduled Ext #1, 16, 17, 32 under GA at Gurdeep Cortes MD, DDS documented in this encounter [facility] 10-19-2022 Note Intradepartmental co nsultation with Dr. Iftikhar Terrell [facility] Work Phone: 10-19-2022 Note Intradepartmental co nsultation with Dr. Iftikhar Terrell [facility] Work Phone: 10-16-2022 Note ORAL SURGERY CLINIC PROCEDURE NOTE [facility] Surgical Product(s): Biopsy of left anterior maxillary lesion PMH: Reviewed, no change. Antibiotic prophylaxis indicated/taken: not applicable Discussed risks, benefits, and alternatives of treatment. All of the patient's questions were answered, and informed consent was obtained: yes Pre-op Diagnosis: Maxillary bony lesion PROCEDURE TIME OUT CHECK LIST Radiograph is correctly matched to the patient,diagnostic quality, correctly oriented for laterality: Yes Time out performed confirming correct surgical site and/or involved teeth verified by the patient and the surgeon: Yes Anesthesia: 3x1.8cc of 4% articaine 1:100,000 epinephrine 1x1.8cc of 0.5% bupivacaine 1:200,000 epinephrine Attending: Brenda Cordoba DMD, MD Resident: Gurdeep Cortes DDS, MD PROCEDURE: Local anesthesia administered via local infiltration to site of intended extraction. Soft tissue released and FTMP flap created around teeth #9-11 with a distal vertical release around tooth #11. A FTMP flap was elevated to expose the lesion, which was easily accessible through the thin facial bone. Rongeur used to remove a portion of the lesion, which was sent for pathology evaluation. Placed 3-0 chromic gut suture to re-approximate tissue primarily. Sites hemostatic. Gauze placed over extraction sites. Complications: none Specimens: none Estimated blood loss: Minimal (<5 ml) Disposition: Home Plan: - FU Biopsy Results - Scheduled Ext #1, 16, 17, 32 under GA at [facility] Gurdeep Cortes MD, ARJUNS [facility] 10-16-2022 Instructions Gurdeep Cortes MD, YONY - 10/16/2022 9:43 AM EDT Oral Surgery Post-operative Instructions BITING ON GAUZE Bleeding may occur for some time after your extraction. In most cases this bleeding can be easily controlled by placing a piece of clean gauze DIRECTLY over the empty tooth socket. Then make sure that you bite firmly on this gauze for 30 to 60 minutes. Use the gauze we supplied to you in the bag. Wash your hands with soap and water before touching the gauze and placing it in your mouth. If a small amount of bleeding continues after 45 minutes then repeat these instructions. Sometimes biting a tea bag may be helpful in controlling minor bleeding. Very light bleeding for 2 days is not uncommon. If heavy bleeding is still persistent during normal clinic hours than call the Clinic where the extraction was done to speak with an oral surgeon. [facility] [phone]. HELPING THE HEALING: For 24 HOURS after your procedure: 1. DO NOT rinse your mouth or spit vigorously 2. DO NOT drink hot liquids such as soup, coffee, tea, hot chocolate 3. AVOID heavy lifting, bending, and strenuous exercise 4. SLEEP with 2 pillows or in a recliner chair, this will help minimize swelling For 72 HOURS (3 DAYS) after your procedure: DO NOT SMOKE OR DRINK ALCOHOL DO NOT DRINK OR SUCK FROM A STRAW STITCHES: Stitches may have been placed to help healing. Your surgeon will specifically inform you if you need to return to have them removed. TOOTH BRUSHING On the day of the procedure it is best to avoid brushing the teeth right next to the extraction site. On the next day you can start brushing ALL your teeth but in a gentle fashion. Remember to not rinse strongly because it may cause you to start bleeding from the extraction site again. SWELLING AND PAIN After the extraction you may feel some pain and experience some swelling. An ice pack may be applied to the area should keep the swelling down (an unopened bag of frozen peas or corn can serve as an ice pack). Put the ice pack on your face for 10 minutes and then leave it off for the next 20 minutes. You can repeat this patter as you feel is necessary for up to 24 hours after the extraction. To avoid injury, make sure that adults or children avoid biting or chewing on their lips of cheeks, which may be numb following a procedure. The peak of swelling occurs 2-3 days after surgery, this is normal. If your pain or swelling seems to be get worse or you feel as though something is not right then call your dentist, as directed above. ANTIBIOTICS AND PAIN MEDICATION If antibiotics have been prescribed then you should take them as directed; this includes taking all the antibiotic (or liquid) pills that were prescribed. If you don't finish them completely a serious infection could result. You may have little of no discomfort after the extraction. If you have minor pain then you may want to take acetaminophen (Tylenol) or ibuprofen (Motrin). It is very important that before taking any medications that you read and follow the directions and warnings that come with these products so you know whether they are right for you and your situation. If you have any questions on whether these medications are right for you, first talk to your doctor or pharmacist before taking the medication. Your surgeon may have given you a written prescription for pain relief. It is important that if you decide to take it you read and understand all the precautions, warnings and directions that come with the medication. If you have any questions on whether the medication is right for you, first talk to your doctor or pharmacist before taking the medication. The pain medication prescription that your dentist gave you may contain a narcotic (like codeine). Most narcotic pain medications can cause upset stomach. If so, then it is best to take them with food. The pain medication prescription that you were given can also make you drowsy or make you act strangely. If so, you should limit or stop activities such as driving a motor vehicle, operate machinery or other activities that require your full attention. EATING AND DRINKING A soft or liquid diet may be best for you after surgery for the first 2-3 days. AFTER ANESTHESIA INSTRUCTIONS: If you were sedated for your procedure, do not drive or operate machinery for 24 hours. A responsible adult should be with you for the remainder of the day. When starting oral intake, be sure to consume CLEAR LIQUIDS first. Clear liquids consist of water, Sprite, martha julius, Jell-O, and non-pulp containing juices such as cranberry and apple juice. Once tolerating clear-liquids, you may advance your diet. Be sure to follow the specific diet instructions from your doctor according to the type of surgery you have had. Patients should not participate in any strenuous activity. Standing and sitting up too quickly following surgery can also result in dizziness and exacerbate these problems. It is also important that patients be supervised for an appropriate amount of time following sedation in order to ensure that they remain safe in the post-operative period. Under NO circumstances should a patient drive the day of surgery or participate in any important decisions. NAUSEA & VOMITING Nausea is not uncommon after surgery. Sometimes pain medications may be the cause. In the event of nausea and/or vomiting following surgery, do not take anything by mouth for at least an hour including the prescribed medicine. You should then sip on Coke, tea, or martha julius. You should sip slowly over a 15-minute period. When the nausea subsides, you can begin taking solid foods and the prescribed medicine. You may take the anti-nausea medication if prescribed. If the above is not helpful, contact your surgeon. Please if you have any questions or concerns please contact us: [facility] . Ask for the oral hygienist nutritional services cook (after hours). surgery attendant Clinic Hours: Mon-Fri 8:30 am to 4:30 pm. documented in this encounter [facility] 10-16-2022 Instructions Gurdeep Cortes MD, DDS - 10/16/2022 9:43 AM EDT Oral Surgery Post-operative Instructions BITING ON GAUZE Bleeding may occur for some time after your extraction. In most cases this bleeding can be easily controlled by placing a piece of clean gauze DIRECTLY over the empty tooth socket. Then make sure that you bite firmly on this gauze for 30 to 60 minutes. Use the gauze we supplied to you in the bag. Wash your hands with soap and water before touching the gauze and placing it in your mouth. If a small amount of bleeding continues after 45 minutes then repeat these instructions. Sometimes biting a tea bag may be helpful in controlling minor bleeding. Very light bleeding for 2 days is not uncommon. If heavy bleeding is still persistent during normal clinic hours than call the Clinic where the extraction was done to speak with an oral surgeon. [facility] [phone]. HELPING THE HEALING: For 24 HOURS after your procedure: 1. DO NOT rinse your mouth or spit vigorously 2. DO NOT drink hot liquids such as soup, coffee, tea, hot chocolate 3. AVOID heavy lifting, bending, and strenuous exercise 4. SLEEP with 2 pillows or in a recliner chair, this will help minimize swelling For 72 HOURS (3 DAYS) after your procedure: DO NOT SMOKE OR DRINK ALCOHOL DO NOT DRINK OR SUCK FROM A STRAW STITCHES: Stitches may have been placed to help healing. Your surgeon will specifically inform you if you need to return to have them removed. TOOTH BRUSHING On the day of the procedure it is best to avoid brushing the teeth right next to the extraction site. On the next day you can start brushing ALL your teeth but in a gentle fashion. Remember to not rinse strongly because it may cause you to start bleeding from the extraction site again. SWELLING AND PAIN After the extraction you may feel some pain and experience some swelling. An ice pack may be applied to the area should keep the swelling down (an unopened bag of frozen peas or corn can serve as an ice pack). Put the ice pack on your face for 10 minutes and then leave it off for the next 20 minutes. You can repeat this patter as you feel is necessary for up to 24 hours after the extraction. To avoid injury, make sure that adults or children avoid biting or chewing on their lips of cheeks, which may be numb following a procedure. The peak of swelling occurs 2-3 days after surgery, this is normal. If your pain or swelling seems to be get worse or you feel as though something is not right then call your dentist, as directed above. ANTIBIOTICS AND PAIN MEDICATION If antibiotics have been prescribed then you should take them as directed; this includes taking all the antibiotic (or liquid) pills that were prescribed. If you don't finish them completely a serious infection could result. You may have little of no discomfort after the extraction. If you have minor pain then you may want to take acetaminophen (Tylenol) or ibuprofen (Motrin). It is very important that before taking any medications that you read and follow the directions and warnings that come with these products so you know whether they are right for you and your situation. If you have any questions on whether these medications are right for you, first talk to your doctor or pharmacist before taking the medication. Your surgeon may have given you a written prescription for pain relief. It is important that if you decide to take it you read and understand all the precautions, warnings and directions that come with the medication. If you have any questions on whether the medication is right for you, first talk to your doctor or pharmacist before taking the medication. The pain medication prescription that your dentist gave you may contain a narcotic (like codeine). Most narcotic pain medications can cause upset stomach. If so, then it is best to take them with food. The pain medication prescription that you were given can also make you drowsy or make you act strangely. If so, you should limit or stop activities such as driving a motor vehicle, operate machinery or other activities that require your full attention. EATING AND DRINKING A soft or liquid diet may be best for you after surgery for the first 2-3 days. AFTER ANESTHESIA INSTRUCTIONS: If you were sedated for your procedure, do not drive or operate machinery for 24 hours. A responsible adult should be with you for the remainder of the day. When starting oral intake, be sure to consume CLEAR LIQUIDS first. Clear liquids consist of water, Sprite, martha julius, Jell-O, and non-pulp containing juices such as cranberry and apple juice. Once tolerating clear-liquids, you may advance your diet. Be sure to follow the specific diet instructions from your doctor according to the type of surgery you have had. Patients should not participate in any strenuous activity. Standing and sitting up too quickly following surgery can also result in dizziness and exacerbate these problems. It is also important that patients be supervised for an appropriate amount of time following sedation in order to ensure that they remain safe in the post-operative period. Under NO circumstances should a patient drive the day of surgery or participate in any important decisions. NAUSEA & VOMITING Nausea is not uncommon after surgery. Sometimes pain medications may be the cause. In the event of nausea and/or vomiting following surgery, do not take anything by mouth for at least an hour including the prescribed medicine. You should then sip on Coke, tea, or martha julius. You should sip slowly over a 15-minute period. When the nausea subsides, you can begin taking solid foods and the prescribed medicine. You may take the anti-nausea medication if prescribed. If the above is not helpful, contact your surgeon. Please if you have any questions or concerns please contact us: [facility] . Ask for the oral hygienist nutritional services cook (after hours). surgery attendant Clinic Hours: Mon-Fri 8:30 am to 4:30 pm. documented in this encounter [facility] 10-16-2022 History of Present illness Narrative ORAL SURGERY CLINIC PROCEDURE NOTE [facility] Surgical Product(s): Biopsy of left anterior maxillary lesion PMH: Reviewed, no change. Antibiotic prophylaxis indicated/taken: not applicable Discussed risks, benefits, and alternatives of treatment. All of the patient s questions were answered, and informed consent was obtained: yes Pre-op Diagnosis: Maxillary bony lesion PROCEDURE TIME OUT CHECK LIST Radiograph is correctly matched to the patient,diagnostic quality, correctly oriented for laterality: Yes Time out performed confirming correct surgical site and/or involved teeth verified by the patient and the surgeon: Yes Anesthesia: 3x1.8cc of 4% articaine 1:100,000 epinephrine 1x1.8cc of 0.5% bupivacaine 1:200,000 epinephrine Attending: Brenda Cordoba DMD, MD Resident: Gurdeep Cortes DDS, MD PROCEDURE: Local anesthesia administered via local infiltration to site of intended extraction. Soft tissue released and FTMP flap created around teeth #9-11 with a distal vertical release around tooth #11. A FTMP flap was elevated to expose the lesion, which was easily accessible through the thin facial bone. Rongeur used to remove a portion of the lesion, which was sent for pathology evaluation. Placed 3-0 chromic gut suture to re-approximate tissue primarily. Sites hemostatic. Gauze placed over extraction sites. Complications: none Specimens: none Estimated blood loss: Minimal (<5 ml) Disposition: Home Plan: - FU Biopsy Results - Scheduled Ext #1, 16, 17, 32 under GA at Gurdeep Cortes MD, ARJUNS documented in this encounter [facility] 08-31-2022 History of Present illness Narrative Teaching Physician Note: I saw and evaluated the patient. I personally obtained the don and critical portions of the history and physical exam. I reviewed the resident's documentation and discussed the patient with the resident. I agree with the resident's medical decision making as documented in the resident's note. Next step is to return for incisional biopsy of left maxillary cystic lesion, with LA in clinic. Brenda Cordoba DMD, MD Images from the original note were not included. OMFS PATIENT VISIT CHIEF COMPLAINT: I have a cyst in my jaw HISTORY OF PRESENT ILLNESS: 27 year old female with no significant PMH presents with mother to [facility] clinic as a referral from an outside provider for the evaluation of cystic lesion in anterior maxillary and evaluation of wisdom teeth. Pt states she had RCT on teeth #9,10 two years ago, and then about 1 year she noticed a lump in the same area. She states as of recent, the size has been relatively unchanged. Pt denies pain associated with the lesion or any intraoral discharge. PAST MEDICAL HISTORY: 27 yrs old White female No past medical history on file. There is no problem list on file for this patient. MEDICATIONS: No current outpatient medications on file. No current facility-administered medications for this visit. ALLERGIES: Patient has no known allergies. SURGICAL HX: No past surgical history on file. SOCIAL HX: Tobacco: Never Denies CLINICAL EXAMINATION Extraoral examination: No significant findings No s/s of infection, redness or tenderness to palpation No facial asymmetry or swelling No appreciable LAD No popping/clicking/crepitus of TMJ b/l No tenderness to palpation of temporalis or masseter asymptomatic function Range of motion WNL CN V and VII intact Intraoral examination: No s/s of infection or tenderness to palpation Moist, pink mucosa Oropharynx clear No pathological soft lesions appreciated Oral cancer screen negative Occlusion stable Oral hygiene fair Buccal expansion of alveolus adjacent to teeth #9,10, that was hard in nature, no fluctance Teeth #1,16,17,22,32 not visible RADIOGRAPHIC INTERPRETATION: Panorex Film and CBCT taken on 08/21/2022 and Retained in our clinic files Tooth # Type Orientation Development Adjacent Structures #'s 1, 16 full bony impactions distoangular 65% abutt maxillary sinus floor #'s 17, 32 full bony impactions mesioangular 65% abutt LIONEL canal Horizontally oriented, full bony impacted tooth #22 RCT #9,10 Large, cystic lesion involving and spanning the roots of teeth #9,10,11 DIAGNOSIS: DDx: Periapical granuloma, lateral periodontal cyst TREATMENT: Exam, Panorex and CBCT evaluated, and Awaiting Insurance authorization. PLAN: 27 year old female with no significant PMH presents with a large, cystic lesion in the left anterior maxilla spanning the roots of teeth #9,10,11. There is buccal expansion associated with this lesion. Pt is indicated for incisional biopsy of lesion for diagnosis and definitive surgical planning. The biopsy will be performed with LA in clinic. Once diagnosis and definitive tx plan are made, tentatively plan for excision of lesion with GA at [facility] d/t the invasiveness of the procedure. Pt also has full bony impacted wisdom teeth with altered paths of eruption and limited arch space for proper eruption of wisdom teeth into the oral cavity. At the time of excision of the cystic lesion, all four wisdom teeth #1, 16, 17, 32 will also be extracted. NV - Incisional biopsy of intrabony cystic lesion in anterior left maxilla with local anesthesia NNV - Excision of cystic lesion with extraction of wisdom teeth #1,16,17,32 with GA at [facility] (PA placed today. But no surgical case request was placed, please schedule surgery once diagnosis is made) Misael Mcgraw DMD Images from the original note were not included. Pano ordered by Dr. Paz documented in this encounter [facility] 08-21-2022 History of Present illness Narrative Images from the original note were not included. OMFS PATIENT VISIT CHIEF COMPLAINT: I have a cyst in my jaw HISTORY OF PRESENT ILLNESS: 27 year old female with no significant PMH presents with mother to [facility] clinic as a referral from an outside provider for the evaluation of cystic lesion in anterior maxillary and evaluation of wisdom teeth. Pt states she had RCT on teeth #9,10 two years ago, and then about 1 year she noticed a lump in the same area. She states as of recent, the size has been relatively unchanged. Pt denies pain associated with the lesion or any intraoral discharge. PAST MEDICAL HISTORY: 27 yrs old White female No past medical history on file. There is no problem list on file for this patient. MEDICATIONS: No current outpatient medications on file. No current facility-administered medications for this visit. ALLERGIES: Patient has no known allergies. SURGICAL HX: No past surgical history on file. SOCIAL HX: Tobacco: Never Denies CLINICAL EXAMINATION Extraoral examination: No significant findings No s/s of infection, redness or tenderness to palpation No facial asymmetry or swelling No appreciable LAD No popping/clicking/crepitus of TMJ b/l No tenderness to palpation of temporalis or masseter asymptomatic function Range of motion WNL CN V and VII intact Intraoral examination: No s/s of infection or tenderness to palpation Moist, pink mucosa Oropharynx clear No pathological soft lesions appreciated Oral cancer screen negative Occlusion stable Oral hygiene fair Buccal expansion of alveolus adjacent to teeth #9,10, that was hard in nature, no fluctance Teeth #1,16,17,22,32 not visible RADIOGRAPHIC INTERPRETATION: Panorex Film and CBCT taken on 08/21/2022 and Retained in our clinic files Tooth # Type Orientation Development Adjacent Structures #'s 1, 16 full bony impactions distoangular 65% abutt maxillary sinus floor #'s 17, 32 full bony impactions mesioangular 65% abutt LIONEL canal Horizontally oriented, full bony impacted tooth #22 RCT #9,10 Large, cystic lesion involving and spanning the roots of teeth #9,10,11 DIAGNOSIS: DDx: Periapical granuloma, lateral periodontal cyst TREATMENT: Exam, Panorex and CBCT evaluated, and Awaiting Insurance authorization. PLAN: 27 year old female with no significant PMH presents with a large, cystic lesion in the left anterior maxilla spanning the roots of teeth #9,10,11. There is buccal expansion associated with this lesion. Pt is indicated for incisional biopsy of lesion for diagnosis and definitive surgical planning. The biopsy will be performed with LA in clinic. Once diagnosis and definitive tx plan are made, tentatively plan for excision of lesion with GA at [facility] d/t the invasiveness of the procedure. Pt also has full bony impacted wisdom teeth with altered paths of eruption and limited arch space for proper eruption of wisdom teeth into the oral cavity. At the time of excision of the cystic lesion, all four wisdom teeth #1, 16, 17, 32 will also be extracted. NV - Incisional biopsy of intrabony cystic lesion in anterior left maxilla with local anesthesia NNV - Excision of cystic lesion with extraction of wisdom teeth #1,16,17,32 with GA at [facility] (PA placed today. But no surgical case request was placed, please schedule surgery once diagnosis is made) Misael Mcgraw DMD Images from the original note were not included. Pano ordered by Dr. Paz documented in this encounter [facility] 07-30-2022 Note PT called in stating she would like a sooner appt than what she has scheduled. Looking at PT's referral, PT is to see us for a Maxillary Cyst and PT was scheduled for a POLISHING WHEEL REPAIRER 30 min appt. We were told these referrals are top priority and NO PROVIDERS have openings available on the template. Please call PT to discuss and to reschedule [phone] [facility] Evaluation note Diagnosis Abnormal tooth eruption- Primary Disturbances in tooth eruption [facility] Diagnosis Abnormal tooth eruption- Primary Disturbances in tooth eruption Body mass index (BMI) 27.0-27.9, adult [facility] Diagnosis Cystic lesion of maxilla determined by X-ray- Primary [facility]* Diagnosis Cystic lesion of maxilla determined by X-ray- Primary Body mass index (BMI) 27.0-27.9, adult [facility]* Diagnosis Cystic lesion of maxilla determined by X-ray- Primary Cystic lesion of maxilla determined by X-ray Impacted teeth [facility]* Diagnosis Post-operative state- Primary Other postprocedural status [facility]* Diagnosis Post-operative state- Primary Other postprocedural status [facility]* Diagnosis 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 documented in this encounter [facility] Summary Purpose Family History No Family History Records FoundNo Family History Records FoundNo Family History Records Found Advance Directives No Advanced Directives Records FoundNo Advanced Directives Records FoundNo Advanced Directives Records Found Reason for Referral Specialty Diagnoses / Procedures Referred By Contac t Referred To Contact Oral Surgery Diagnoses Abnormal tooth eruption Procedures BIOPSY OF ORAL TISSUE - HARD Brenda Cordoba DMD, MD [address] [place] [address] Referral ID Status Reason Start Date Expiration Date V isits Requested Visits Authorized [id number] Pending Review 08/24/2022 08/25/2023 1 1 Scheduling Instructions If your in-clinic procedure was not scheduled for you today, please call (option 2) during normal business hours (8 am to 5 pm) on to schedule. Please allow 4 weeks time between the day of your consult to scheduling your procedure to allow the system time to process the order and receive insurance authorization. If your insurance denies all or part of your procedure, you will be contacted with [id number] costs or next steps. All self-pay payments will need to be collected in full prior to having the procedure. Please arrive 30 minutes prior to your procedure. If you are having a local anesthesia procedure: No diet restrictions the day before or day of the procedure. You may take your normal medications as instructed. No covid testing needed. You may drive yourself home afterward. If you are prescribed anxiety reducing medications for the procedure: You also MUST have a coach tour driver/escort >18yrs old present to take you home after. If your provider has proposed an IV sedation procedure: Please refer to the instructions given to you at your consult appointment. You will receive a call from a nurse roughly 1 week prior to your procedure to go over any/all instructions. Question Answer What is the procedure for? Dental Please specify: Biopsy Please specify: Biopsy of Oral Tissue-Hard Biopsy of Oral Tissue-Hard--please list tooth number(s): Anterior left maxilla Is Sedation Needed? Local Anesthesia Procedure Length: 60 Which area is this procedure for? Clinic Specialty Diagnoses / Procedures Referred By Dayne reynoso Referred To Contact Oral Surgery Diagnoses Abnormal tooth eruption Procedures FULL BONY IMPACTION DEEP ANESTHESIA, 1ST 15 MINS GENERAL ANESTH EA ADDL 15 MIN Brenda Codroba DMD, MD [address] [place] [address] Referral ID Status Reason Start Date Expiration Date V isits Requested Visits Authorized [id number] Pending Review 08/24/2022 08/25/2023 1 1 Question Answer What is the procedure for? Dental, Medical Please specify: Extractions Please specify: Full Bony Impacted Full Bony Impacted--please list tooth number(s): 1,16,17,32 Is Sedation Needed? IV Sedation Desired Length (Minutes): 60 Which area is this procedure for? OR Please specify: Excisions Please specify: Tumor/cyst Mandible Tumor/cyst Mandible Quantity x1 - Cyst in maxilla Specialty Diagnoses / Procedures Referred By Dayne reynoso Referred To Contact Dentistry Diagnoses Periapical cyst Brenda Cordoba DMD, MD [address] [place] [address] [place] [address] Referral ID Status Reason Start Date Expiration Date V isits Requested Visits Authorized [id number] Authorized 04/07/2023 10/04/2023 3 3 Scheduling Instructions Please call the Dental Clinic at [facility] at to schedule an appointment if one was not made for you today. Comments Had large apical granuloma related to #10, which was extracted and granuloma removed. Tooth #11 is likely devitalized by the granuloma excision (apex of #11 is in the cystic cavity). Please eval for endo tx on #11 Additional Source Comments INFORMATION SOURCE (unrecogn ized section and content) DATE CREATED AUTHOR 05/16/2022 Arik Garcia [facility] DATE CREATED AUTHOR AUTHOR'S ORGANIZ ATION 06/03/2022 [facility] DATE CREATED AUTHOR AUTHOR'S ORGANIZ ATION 04/13/2023 [facility] Reason for Visit (unrecogniz ed section and content) Specialty Diagnoses / Procedures Referred By Dayne t Referred To Contact Oral Surgery Diagnoses Maxillary cyst Tamara Haider MD [address] [place], [place] [id number] [facility] ORAL SURGERY [address] [place] [address] Referral ID Status Reason Start Date Expiration Date V isits Requested Visits Authorized [id number] Authorized 06/24/2022 06/25/2023 3 3 Reason Comments Procedure Specialty Diagnoses / Procedures Referred By Dayne t Referred To Contact Oral Surgery Diagnoses Abnormal tooth eruption Procedures BIOPSY OF ORAL TISSUE - HARD Brenda Cordoba DMD, MD [address] [place] [address] Referral ID Status Reason Start Date Expiration Date Visits Re quested Visits Authorized [id number] Closed 08/24/2022 08/25/2023 1 1 Specialty Diagnoses / Procedures Referred By Dayne reynoso Referred To Contact Ambulatory Surgery Diagnoses Cystic lesion of maxilla determined by X-ray Cystic lesion of maxilla determined by X-ray [M27.40] Procedures EXCISION, BENIGN TUMOR/CYST MAXILLA/ZYGOMA, ENUCLEATION AND CURETTAGE EXCISION CYST Brenda Cordoba DMD, MD [address] [place] [address] [facility] [address] [place] [phone] Phone: [phone] Referral ID Status Reason Start Date Expiration Date Visits Re quested Visits Authorized [id number] 3 3 Specialty Diagnoses / Procedures Referred By Contlani t Referred To Contact Oral Surgery Diagnoses Abnormal tooth eruption Procedures FULL BONY IMPACTION DEEP ANESTHESIA, 1ST 15 MINS GENERAL ANESTH EA ADDL 15 MIN Brenda Cordoba DMD, MD [address] [place], [place] [id number] [facility] [address] [place] [phone] Referral ID Status Reason Start Date Expiration Date V isits Requested Visits Authorized [id number] Closed Consultation -[facility] 08/24/2022 03/17/2023 1 1 Care Teams (unrecognized sec tion and content) Improvement Auditor Relationship Specialty Start Date End Date Brenda Cordoba DMD, MD [address] [place] [address] Physician Oral & Maxillofacial Surgery 09/05/22 Improvement Auditor Relationship Specialty Start Date End Date Brenda Cordoba DMD, MD [address] [place] [address] Physician Oral & Maxillofacial Surgery 09/05/22 Improvement Auditor Relationship Specialty Start Date End Date Brenda Cordoba DMD, MD [address] [place] [address] Physician Oral & Maxillofacial Surgery 09/05/22 Improvement Auditor Relationship Specialty Start Date End Date Brenda Cordoba DMD, MD [address] [place] [address] Physician Oral & Maxillofacial Surgery 09/05/22 Improvement Auditor Relationship Specialty Start Date End Date Brenda Cordoba DMD, MD [address] [place] [address] Physician Oral & Maxillofacial Surgery 09/05/22 Improvement Auditor Relationship Specialty Start Date End Date Brenda Cordoba DMD, MD [address] [place] [address] Physician Oral & Maxillofacial Surgery 09/05/22 Improvement Auditor Relationship Specialty Start Date End Date Brenda Cordoba DMD, MD [address] [place] [address] Physician Oral & Maxillofacial Surgery 09/05/22 Improvement Auditor Relationship Specialty Start Date End Date Brenda Cordoba DMD, MD [address] [place] [address] Physician Oral & Maxillofacial Surgery 09/05/22 Improvement Auditor Relationship Specialty Start Date End Date Brenda Cordoba DMD, MD [address] [place] [address] Physician Oral & Maxillofacial Surgery 09/05/22 Scheduled Active and Recently Administ ered Medications (unrecognized section and content) Medication Order 12/05/2022 12/06/2022 12/07/2022 ampicillin-sulbactam (Unasyn) 3000 mg in NS 100 mL ivpb 3,000 mg, Intravenous, ONCE, 1 dose, On Wed12/07/22 at 1000 1000 (Due) heparin (porcine) 5000 UNIT/0.5ML injection 5,000 Units, Subcutaneous, ONCE, 1 dose, On Wed12/07/22 at 1000, Pre-op 1000 (Due) Continuous Medication Order 12/05/2022 12/06/2022 12/07/2022 lactated ringers iv infusion Intravenous, at 125 mL/hr, CONTINUOUS, Starting on Wed12/07/22 at 1000, Until Discontinued 0932 (IV New Bag - P rovider: Salena Romero RN) PRN Medication Order 12/05/2022 12/06/2022 12/07/2022 bupivacaine (MARCAINE) 20 mL, lidocaine-epinephrine (XYLOCAINE) 1 %-1:810529 20 mL, dose administered = 20 mL given 40 mL sc injection (CANCELED) PRN, Starting on Wed12/07/22 at 1004, Until Wed12/07/22 at 1050 1004 (Given - Provid er: Sam Botello DDS) chlorhexidine (PERIDEX) 0.12 % oral solution (CANCELED) PRN, Starting on Wed12/07/22 at 1012, Until Wed12/07/22 at 1050, Intra-op 1012 (Given - Provid er: Sam oBtello DDS - Comment: sent home wit patient) fentaNYL (SUBLIMAZE) 50 MCG/ML injection 25 mcg, Intravenous Push, EVERY 5 MIN PRN, 5 doses, Starting on Wed12/07/22 at 0919, Until Discontinued, Severe Pain (pain score 7,8,9,10), PACU Now gelatin adsorbable (SURGIFOAM) 12-7 MM sponge (CANCELED) PRN, Starting on Wed12/07/22 at 1034, Until Wed12/07/22 at 1050, Intra-op 1034 (Given - Provid er: Sam Botello DDS) naloxone (NARCAN) 0.4 MG/ML injection 0.4 mg, Intravenous Push, PRN, Starting on Wed12/07/22 at 0919, Until Discontinued, Respiratory Rate Less Than 8 for adults and less than 12 for Peds or for suspected overdose, PACU Now oxyCODONE-acetaminophen (PERCOCET) 5-325 mg per tablet 2 Tablet, Oral, PRN, 1 dose, Starting on Wed12/07/22 at 0919, Until Discontinued, Moderate Pain (pain score 4,5,6), PACU Now oxymetazoline (AFRIN) 0.05 % nasal solution (CANCELED) PRN, Starting on Wed12/07/22 at 1033, Until Wed12/07/22 at 1050, Intra-op 1033 (Given - Provid er: Sam Botello DDS - Comment: afrin soaked cottonoid applied in mouth) FOR RECORDS PERTAINING TO PATIENTS WHO ARE OR HAVE BEEN ENROLLED IN A CHEMICAL DEPENDENCY/SUBSTANCEABUSE PROGRAM, SOME INFORMATION MAY BE OMITTED. This clinical summary was aggregated from multiple sources. Caution should be exercised in using it in the provision of clinical care. This summary normalizes information from multiple sources, and as a consequence, information in this document may materially change the coding, format and clinical context of patient data. In addition, data may be omitted in some cases. CLINICAL DECISIONS SHOULD BE BASED ON THE PRIMARY CLINICAL RECORDS. [facility] [employer] [facility]. provides no warranty or guarantee of the accuracy or completeness of information in this document.
--- NOTE | 2024-05-22 02:13 | ED_ITS ---
HPI - Wound/Laceration General Chief Complaint: Wound/Laceration Stated Complaint: WOUND CHECK, LOWER EXTREMITY Time Seen by Provider: 05/22/24 02:09 Source: patient Mode of arrival: Wheelchair Limitations: no limitations History of Present Illness HPI narrative: pulling a cart behind her at work and it ran into the back of her left ankle at the Achilles sustaining a laceration. Hurts to bear weight. No weakness of the ankle or foot. No numbness Body four view annotation: [address]: Reports work Patient tetanus UTD: No Context: Reports accidental Associated symptoms: Reports pain Related Data Allergies Allergy/AdvReac Type Severity Reaction Status Date / Time acetaminophen (From Pamprin Allergy Severe Hives Verified 05/22/24 02:04 Max) aspirin (From Pamprin Max) Allergy Severe Hives Verified 05/22/24 02:04 caffeine (From Pamprin Max) Allergy Severe Hives Verified 05/22/24 02:04 Review of Systems 2 ROS0 Status of ROS 10 or more systems reviewed and unremark able except as noted in history and below PFSH PFSH Social History Little interest or pleasure in doing things: not at all Feeling down, depressed, or hopeless: not at all Exam Constitutional Vital Signs, click to edit/add: Last Vital Signs Temp 98.3 F 05/22/24 02:04 Pulse 84 05/22/24 02:04 Resp 19 05/22/24 02:04 BP 134/93 H 05/22/24 02:04 Pulse Ox 100 05/22/24 02:04 O2 Del Method Room Air 05/22/24 02:04 Common normals: no apparent distress, average body habitus, oriented x3, no limitations, healthy appearing, alert and well nourished [facility] Common normals: normocephalic and head/scalp atraumatic Eye Common normals: PERRL, EOMs intact bilaterally and conjunctivae normal Respiratory Common normals: normal respiratory effort, no retractions, no use of accessory muscles and clear to auscultation bilaterally Cardio Common normals: regular rate, regular rhythm, S1 normal heart sound and S2 normal heart sound Extremity Extremity image (back): 2 1. superficial lac left posterior ankle . On first inspection does not appear to involve the Achilles. I can palpate the achilles above the lac site without pain. No deformity of the Achilles is noted Neuro Common normals: oriented x3, CN's II-XII intact bilaterally, moves all extremities and no focal motor deficits Psych Appearance: grossly normal Course Vital Signs Vital signs: Vital Signs Temperature 98.3 F 05/22/24 02:04 Pulse Rate 84 05/22/24 02:04 Respiratory Rate 19 05/22/24 02:04 Blood Pressure 134/93 H 05/22/24 02:04 Pulse Oximetry 100 05/22/24 02:04 Oxygen Delivery Method Room Air 05/22/24 02:04 Temperature 98.3 F 05/22/24 02:04 Pulse Rate 84 05/22/24 02:04 Respiratory Rate 19 05/22/24 02:04 Blood Pressure 134/93 H 05/22/24 02:04 Pulse Oximetry 100 05/22/24 02:04 Oxygen Delivery Method Room Air 05/22/24 02:04 MDM - Wound/Laceration MDM Narrative Medical decision making narrative: presents with lac left ankle. on exam no evidence to support lac to the achilles tendon. lac repaired as above and patient discharged to follow up with [facility]. should have stitches removed 10 days Discharge Plan Discharge Chief Complaint: Wound/Laceration Clinical Impression: Laceration of ankle, left Patient Disposition: Home, Self-Care Print Language: [place] Instructions: Laceration (ED) Additional Instructions: have wound rechecked in 2-3 days and stitches removed in 10 days Referrals: Physician,Non-Staff, MD [Primary Care Provider] - 1 week Procedures ED Procedure Instructions Procedures Procedures: laceration left ankle overriding the achilles 2.5cm lac into SQ space site inspected and no evidence of tendon lac 1% lido as local. cleaned with betadine and closed with # 5 3.0 prolene stitches. tolerated well. no complication
[2024-05-22] MEDS: ADACEL DIPH,PERTUSS(ACELL),TET VAC/PF 0.5 ML ADULT SYRINGE IM (02:44)
[2024-05-22] MEDS: LIDOCAINE HCL 1% 100 MG/10 ML MDV INJ (02:44)
--- NOTE | 2024-05-22 03:12 | PC.NURSE ---
i gave this patient verbal and paper discharge orders along with her workers compensation papers, and a list of worker compensation dr's this patient voices yes to understanding these. at time of discharge this patient voices no concerns and shows no signs of distress
== END 2024-05-22 03:15 | disposition home or self-care (01) ==
PROVIDERS: Emergency Provider Internal Medicine
DX: S91.012A Laceration without foreign body, left ankle, initial encounter (principal); Z23 Encounter for immunization; W22.8XXA Striking against or struck by other objects, initial encounter
CPT/HCPCS: 12001; 90471; 90715; 99284

== ENCOUNTER 2024-06-13 12:52 | Outpatient (RCR) | payer OTHER, SELFPAY | END 2024-07-19 07:17 | disposition home or self-care (01) | LOC: PT 12:52 | PROVIDERS: Visit Provider Emergency Medicine Emergency Medical Services | DX: S91.012D Laceration without foreign body, left ankle, subsequent encounter (principal) | CPT/HCPCS: 97110; 97112; 97116; 97140; 97161 ==

== ENCOUNTER 2024-11-22 08:55 | Outpatient (OUT) | payer BC, SELFPAY ==
--- OUTSIDE RECORDS SUMMARY | 2024-11-22 09:05 | XMS_ITS | CCD ---
Author Organization [facility] CliniSyfl Care Team Providers Care Fitness Supervisor Name Role Phone JADEN SCALES Attending Unavailable TIMMIS, DR SAXENA Attending Unavailable TIMMIS, DR SAXENA Admitting Unavailable TIMMIS, DR SAXENA Consulting Unavailable SCALES ., DR JADEN Godoy [...] Provider Unavailbrandon Cordoba DMD, MD, Justin Unavailable [phone] BRENDA CORDOBA Admitting Unavailable BRENDA CORDOBA Attending Unavailable BRENDA CORDOBA Referring Unavailable PROVIDER, UNKNOWN Attending Unavailable PROVIDER, UNKNOWN Admitting Unavailable PROVIDER, UNKNOWN Attending Unavailable PROVIDER, UNKNOWN Admitting Unavailable PROVIDER, UNKNOWN Attending Unavailable BRENDA CORDOBA Referring Unavailable PROVIDER, UNKNOWN Admitting Unavailable PROVIDER, UNKNOWN Attending Unavailable PROVIDER, UNKNOWN Admitting Unavailable BRENDA CORDOBA Referring Unavailable PROVIDER, UNKNOWN Attending Unavailable TAMARA HAIDER Referring Unavailable PROVIDER, UNKNOWN Admitting Unavailable Emeli KAISER MD, Justin Unavailable [phone] NO FAMILY, PHYSICIAN Primary Care Provider Unava ilable Arthur Zaldivar DO Attending Provider Arthur Zaldivar Jr Attending Unavailable NO FAMILY, PHYSICIAN Primary Care Unavailable Radatz Jr, Edward Admitting Unavailable Radatz Jr Edward Attending Unavailable NO FAMILY, PHYSICIAN Primary Care Unavailable Radatz Jr, Edward Admitting Unavailable Radatz Jr Edward Attending Unavailable NO FAMILY, PHYSICIAN Primary Care Unavailable Radatz Jr, Edward Admitting Unavailable Radatz Jr, Edward Admitting Unavailable NO FAMILY, PHYSICIAN Primary Care Unavailable Arthur Zaldivar Jr Attending Unavailable Kayley Palacios Edward Admitting Unavailable NO FAMILY, PHYSICIAN Primary Care Unavailable Arthur Zaldivar Jr Attending Unavailable Hanane Tripathi APRN Primary Care Provider Hanane Tripathi APRN Attending Provider [phone] Medications Current Medications Medication Drug Class(es) Dates [...] meq/ml injectable solution (1 source) Start: 12-07-2022 lactated ringe rs iv infusion chlorhexidine gluconate 1.2 mg/ml [...] Start: 12-07-2022 fentaNYL (SUBLIMAZE) 50 MCG/ML injection fluticasone propionate 0.05 mg/actuat metered dose nasal spray (3 sources) Corticosteroid Start: 10-13-2024 End: 11-22-2024 take 1 spray(s) nasal route twice daily Fluticasone Propionate (Flonase Allergy Relief) 50 mcg/actuation spray,suspension Active 1 SPRAY INTRANASAL Twice daily November 22, 2024 8:40am administer into each nostril Complies with drug therapy ibuprofen 600 mg oral tablet (14 sources) [...] Problem Classification Problem Date Documented Date Episodic/Chronic Open wounds of extremities (1 source) Laceration without foreign body, left ankle, initial encounter; Translations: [Laceration without foreign body, left ankle, initial encounter] Onset: 07-14-2024 Episodic Other nutritional; endocrine; and metabolic disorders (3 [...] Translations: [Chronic maxillary sinusitis] Onset: 12-26-2021 Chronic Otitis media and related conditions (6 sources) Dysfunction of eustachian tube; Translations: [Unspecified Eustachian tube disorder, unspecified ear] 10-13-2024 Episodic Residual codes; unclassified (4 sources) Postoperative state; Translations: [Other specified postprocedural states] 12-14-2022 Episodic Residual codes; unclassified (1 source) Family history of cardiac disorder; Translations: [Family history of ischemic heart disease and other diseases of the circulatory system] 11-22-2024 Episodic Residual codes; unclassified (1 source) Family history of diabetes mellitus; Translations: [Family history of diabetes mellitus] 11-22-2024 Episodic Unclassified (1 source) H69.92 - Unspecified Eustachian tube disorder, left ear Past or Other Problems Problem Classification Problem [...] Interpretation Reference Range Facility Progress Noteson 04-07-2023 Community Service Aide Authentication Interface Message Text ORAL SURGERY CLINIC [...] and reproducible Assessment / Diagnosis: Periapical cyst [122654] 27 yrs old White female 4 months [...] dentist, and was given a referral to [facility] for evaluation and treatment of #11. Normal postoperative course. Healing as expected. Case seen and discussed with Dr. Cordoba Plan: Follow-Up: PRN Follow up sooner with new or worsening symptoms. Normal The [employer] Authentication Interface Message Text Normal The [employer] Telephone Encounteron 2023 Community Service Aide Authentication Interface Message Text Patient calling back in. Relayed message patient stated the Am time from 9 am to 11:30 am would work best. Please reach out to her to assist. Phone numbers Normal The [employer] Authentication Interface Message Text Called pt to get scheduled for a f/u appt on 04/07 requested by . Lvm stating she can come in any time between 9am-11:30am or 1-330pm Normal The [facility] Progress Noteson 12-14-2022 Community Service Aide Authentication Interface Message Text Teaching Physician Note: I saw and evaluated the patient. I personally obtained the don and critical portions of the history and physical exam. I reviewed the resident's documentation and discussed the patient with the resident. I agree with the resident's medical decision making as documented in the resident's note. Brenda Cordoba DMD, MD Normal The [facility] Community Service Aide Authentication Interface Message Text Patient is a [...] involvement. Plan F/u as needed Normal The [facility] Anesthesia Postprocedure Elaine alvarezdarshana 12-07-2022 Community Service Aide Authentication Interface Message Text Anesthesia Postoperative Assessment: [...] EVENTS: No notable events documented. Normal The [facility] Anesthesia Transfer Of Careo n 12-07-2022 Community Service Aide Authentication Interface Message Text Patient taken to [...] Cordoba DMD, MD Anesthesiologist: Lex Niño MD Loft Worker Head: Laura Goddard MD EXCISION CYST, enucleation and [...] None Lines, Drains, Airways Peripheral IV Access: 12/07/22930 22 gauge Anterior;Right Forearm (Active) Site Assessment [...] was received. Laura Goddard MD Normal [facility] OP Noteon 12-07-2022 Community Service Aide Authentication Interface Message Text [facility] Division of epic willow analyst [address] [place] [address] [place] [address] OPERATIVE NOTE Name: Comfort Victoria MR#: [id number] ENC#: Data Unavailable Surgical Case #: Data Unavailable Date of Procedure: 12/07/2022 ? PREOPERATIVE DIAGNOSIS: Cystic lesion of maxilla determined by X-ray (Primary Diagnosis) [[id number]] Impacted teeth [[id number]] ? POSTOPERATIVE DIAGNOSIS: Cystic lesion of maxilla determined by X-ray (Primary Diagnosis) [[id number]] Impacted teeth [[id number]] OPERATION: FULL BONY IMPACTION [D7240] EXTRACTION ERUPTED TOOTH/EXR [D7140] EXCISION, BENIGN TUMOR/CYST MAXILLA/ZYGOMA, ENUCLEATION AND CURETTAGE [[id number]] ? ATTENDING SURGEON: Brenda Cordoba ? FIRST [...] transferred onto the operating room table under [employer] own power. The patient was then placed [...] ? Brenda Cordoba DMD, MD Normal The [employer] [facility] URINE HCG-IN OFFICEOrdered B y: Salena Romero on 12-07-2022 HCG ( test) Ql (U) Negative Negative [facility] Negative Internal Control Negative Negative [facility] Positive Internal Control Positive Positive [facility] Anesthesia Preprocedure Eval uationon 12-06-2022 Community Service Aide Authentication Interface Message Text ASA: 1 No history of anesthetic complications NPO status: Greater than 8 hours Past Medical History and Review of Systems Pulmonary - negative ROS Dental - negative ROS Endo - negative ROS security rep (+) irregular periods, Neuro/Psych - negative ROS [...] were discussed with the patient and/or legal business office representative. The risks, benefits and alternatives were reviewed. Questions regarding anesthesia were answered. Patient and/or legal business office representative knows such anesthetics and procedures may be performed by Resident physicians, Certified Anesthesiologist Assistants, or Certified Nurse Anesthetists under the supervision of a physician. The patient /or the patient's legal business office representative agree with the plan for anesthesia. Normal The [facility] Telephone Encounteron 2022 Community Service Aide Authentication Interface Message Text VM TO PATIENT OF SURGERY LOCATION CHANGE FROM TO [address] ON 12-[address] CORDOBA LEFT MESSAGE TO CALL ME BACK. Normal The [facility] PSE Call H AND Ney Community Service Aide Authentication Interface Message Text Telephone History Comfort Victoria, [id number] 11/24/2022 Patient was identified by name and date of . Karen Brizuela RN 27 year old 153 lbs 5' 5 Date of Surgery: 12/07/2022 at [facility] Surgeon: Emeli Type of Surgery: EXCISION CYST, LEFT HISTORY OF PRESENT ILLNESS: PSE telephone history conducted with patient for upcoming surgery with . ORAL SURGERY CLINIC PROCEDURE NOTE [facility] Surgical Product(s): Biopsy of left anterior maxillary [...] under GA at [facility] Gurdeep Cortes MD, DDS STOP-BANG Row Name 11/24/22 0945 History of [...] tooth eruption and listed in surgeon's note [place] teeth to be extracted Pulmonary: Negative Cardiovascular: [...] pain. Do not take any Vitamin E, [place] 3, fish oils, herbal medications 7 days prior to surgery (Fish Oil, Ginseng, Ginko Biloba) DAY OF SURGERY NOTES: The patient is to have nothing to eat after midnight and may have clear liquids up until 2 hours prior to arrival time. Needs physical assessment, HCG, neck circumference morning of surgery. Karen Brizuela RN Time Spent Performing thi (more content not included)... Normal The [facility] No Panel InformationOrdered By: Virginia Khan on 10-19-2022 Case Report Surgical Pathology Report Case: [id number] Authorizing Provider: Brenda Cordoba DMD, MD Collected: 10/16/2022 1400 Ordering Location: [facility] Oral Surgery Received: 10/16/2022 1400 Pathologist: Virginia Khan MD Specimen: Maxilla [facility] Work Phone: Clinical Information [facility] Work Phone: Final Diagnosis [id number] mbGFuZzEwMzNcZnRuYm pcdWMxIHtccnRmMVxlc XvbWWQvBVQwEK9yhIbv uSc5uXteQSIpoiT4rGH nUYssf7zsUNC9l5nhxn seRFOrGZgnMr6tpSCqx McvLqQfSJVoGLv2fK41 FEPflZ5baAUkMGh9QEQ hcGVydzEyMjQwXHBhcG VamQV7UHVuNE3ljxnsQ GchLKzjWHSdliW6VRYu mEZnY1UiDFEgNO9qtdl yMIG9QYziOQNrOOR7Lf FrMEMec5Tiwzt1AoFez GFyZFxwbGFpblxiXGZz IpAjUF9rJy8ouCjexFU sICJccGFyXGIwXHBhci XZtRFnevL1JKDov4J8G I2wtZSeVJZztEfegXtq xVRdiV1ijloyv2h2wXR lX9K2HHKrdiSuN4oxz2 8gUuQrynSxTU8cXZEzt 24sIGFuZCBncmFudWxh bLdgrpM2bWPflNXsWg8 kmBW9qP9fWMJct8U4GG JrgxSel8OawnEry3o4m WTqiyZkaiBuTK6mLMCu MR71pErwrw00yuUklVX 0LlxwYXJccGFyfXtccn VoKUqju2CbM2IsEvAjO FxhbnNpXGRlZmxhbmcx LNWiMBO3gqJmHPMfXDk mQGOySEneOw5zqKUfqJ wbXvMuLSJdy1aylcMOj iwpfYt2b4leDBItIoN6 aXDnNBinT1suksKjmNW tFIZqXWx6uC05GASgzH 4xkNErAZmzyaGtEkD3F MuuPYPqCwV0SIVmnZVa XRZbM5hcOAX5LEityyS qtjt9RQEaxLY8UQM7TA WbZRItD4XkFU8sPMNno AXtMFz9w2rffTanKGYq XHK8v7rbZGvqlkWiKX6 zgb1txBv8x3soqdUfIT MePCJsxLADDZIkU0Hvl IuhFe7pgEd2kUbqAvrx JAJ9Ohy5GM6ibj30rxm 2cVeyCWUmnaulXlB1DN pgDZZdrxytGOg7PBidM XMgdOC8BMKrvEFnV1Tw PNLfDZ8tmpz4KFE9BSa sXYWdLtU6KIWiqNCrKM LhxLvgRQene964PMN1T dJjAI3hZ0Gmk2B4xB6f aXRcZGVmdGFiNzIwXGZ etl2ejNVwAWwzq6MaIS A1djU9nVJixVNjZLWwI Y08Ejhxf5UrCrjoMGQ2 EVOqhyVaq9Dhs0lrYnQ rpuElO5alH5ErVINzGF TmZTCvIvSnkyDzy0Dcd 5UaiFWupKq3l1zaBNXw DXMnrYvqh1wfWOR4TEK pZ6U3oVPcu7bnYOecVS EnsVV2pvS4PENjcSMzL 1GirI4wZEPaOD6apkh0 o5zxLNV2EFanIGIyAoM 9otP3EXRkeJMrCWXasT qmNTsul657OHI6UgDkX UDtz4KgH4PqwZgxQ85a jLtjI50gFRHbkPifeU5 okWjzpE6yVkQxXdSaNX xxbFxwbGFpblxmMVxmc zIyXGxhbmcxMDMzXGhp G1dnRhClCQVtqDrdCHy xf9UtDCOrEYVmJuNiaR FyXHBsYWluXGYxXGZzM jBcbGFuZzEwMzNcaGlj aFxmMVxkYmNoXGYxXGx eE2xxFvKxJlQmVIZGhE VjdHJvbmljYWxseSBTa BzuWYGtX9B1CZL8YLAs bmlhIFJheWVzLURhbmF qNGDAYCDxbyMdMH2xKW 8yMDIzLlxwYXJccGFyX HBsYWluXGYxXGZzMThc bGFuZzEwMzNcaGljaFx mMVxkYmNoXGYxXGxvY2 icDnKaE8RdAFRpOWorv SBJIGNlcnRpZnkgdGhh dCBJIHBlcnNvbmFsbHk jU92pMHUmlVCgVYNiSX WpuCLjut0ugYgtZMN9F Mi2GLDnm13mb2FtmIwf UUMfo4JsHOGtSJVzqAZ uKHMpIGFuZCBoYXZlIH JlbmRlcmVkIHRoZSBma G8shEVmuXAceb0umJPu WDToJaMpfAmssB9zHmD yGiSrXkcmMQ2mIUCvF0 fyzINaBYQhJJBgU3foB nZpiP8npQucOFotwrLb YTCtnsrnNQP4qI== [facility] Work Phone: Gross Description g6uedONuIZJeyCZxVEI wNlxhbnNpXHNwbHRwZ3 TmxuyuSAgdJT1rVX7ra GxhdHRveWVuXGRlZmYw v2ofi929rPQtc8qhFXS HkbebrVp0fIxwL39qo8 C0NzdrR47qkSQtFND4Q TIyNDBccGFwZXJoMTU4 CKJuzJDmD5wpHRWrCD5 hcmdyMTgwMFxtYXJndD Z4HPJokCDwB3XmWERzY MctBNFxdrh9WxQiTb1s dGVyeTcyMFxwYXJkXHB nGBboSDBaCxTtQB0iJK GdqEBym9u2vD6tKGLeX CDiPd4fbCeqsANkIntm YXIgVGhlIHNwZWNpbWV nAVhtSECnW9XlonWqBA LugWAgVVylGSVxf0iuR 2fzIHPjykNihO8lnmsw fEHgMMicUBG9cBMlBGR vaVqinzNqojDvAK0kUW IkMVMbO3RjUSFsZ80mX GXxmA6uFJFdHYDcAZYu oJMnvLTpfIAagB9ePCH wLBEKcVChg1RaU5uzCD 3mK91njWPrpzPmPPmcZ W8ocEItcWC4zDKrRAZu g7tihsL6FRRrDNHIlVI wr8YdK8kjNE0gN28cj7 jmlGWkg7WpIJEivOCwU ShzKSBvZiByZWQtdGFu QMVmDiFmbUgzq7DlZM3 cBPW9uxfaGeJcAmQznJ KiHnNhjLDySdKdK24dF SRdHJYmgREsuW5ohoUy bnSsvNDwaQB2BRIapD9 ltW45ciHnygEzocBqK4 Fsc2X9cOIoDYYgFC7gF THeiaueNPSbn3UbcUBv fQ== [facility] Work Phone: [facility] Work Phone: Progress Noteson 10-19-2022 Community Service Aide Authentication Interface Message Text Teaching Physician Note: [...] cyst, and likely extraction of tooth/teeth at [facility], pending path. Brenda Cordoba DMD, MD Normal The [facility] Patient Instructionson 10-16 Community Service Aide Authentication Interface Message Text Oral Surgery Post-operative Instructions [...] done to speak with an oral surgeon. [phone]. HELPING THE HEALING: For 24 HOURS after [...] It (more content not included)... Normal The [employer] Progress Noteson 08-31-2022 Community Service Aide Authentication Interface Message Text Teaching Physician Note: [...] clinic. Brenda Cordoba DMD, MD Normal The [facility] Progress Noteson 08-21-2022 Community Service Aide Authentication Interface Message Text [facility] PATIENT VISIT CHIEF COMPLAINT: I have a cyst in my jaw HISTORY OF PRESENT ILLNESS: 27 year old female with no significant PMH presents with mother to [facility] clinic as a referral from an outside [...] is made) Misael Mcgraw DMD Normal The [facility] Community Service Aide Authentication Interface Message Text Pano ordered by Dr. Paz Normal The [facility] Telephone Encounteron 2022 Community Service Aide Authentication Interface Message Text Patient called again today to request a sooner appointment. Please contact patient to schedule as she has an urgent medical condition and there are no slots open to schedule her. Normal The [facility] CT FACIAL BONES WO W CONon [...] JUAN NELSON Date: 2022-05-25 11:31 Normal The [facility] XR SINUSES 3 VIEWS OR [facility] 03-19-2022 XR SINUSES 3 VIEWS OR GREATER [...] by: JUAN NELSON Date: 2022-03-19 17:56 Normal The [facility] XR SINUSES 3 VIEWS OR [facility] 12-29-2021 XR SINUSES 3 VIEWS OR GREATER [...] by: JUAN NELSON Date: 2021-12-29 06:32 Normal [facility] Vital Signs Date Time Vital Sign Value Performing Clinician Facility 11-22-2024 08:28-0400 Body height 162.56 cm Hanane Tripathi APRN Work Phone: [facility] 11-22-2024 08:28-0400 Body mass index (BMI) [Ratio] 25.1 kg/m2 Hanane Tripathi APRN Work Phone: [facility] 11-22-2024 08:28-0400 Body temperature 96.7 [degF] Hanane Tripathi APRN Work Phone: [facility] 11-22-2024 08:28-0400 Body weight 66.39 kg Hanane Minorlonnieanne-mariechary [employer] Work Phone: [facility] 11-22-2024 08:28-0400 Diastolic blood pressure 64 mm[Hg] Hanane Minorlonnieanne-mariechary [employer] Work Phone: [facility] 11-22-2024 08:28-0400 Heart rate 75 /min Hanane Minorlonnieanne-mariechary [employer] Work Phone: [facility] 11-22-2024 08:28-0400 SaO2% (BldA) [Mass fraction] 98 % Hanane Minorestrella [employer] Work Phone: [facility] 11-22-2024 08:28-0400 Systolic blood pressure 102 mm[Hg] Hanane Minorestrella [employer] Work Phone: [facility] 10-13-2024 08:52-0400 Body height 162.56 cm Hanane Minorlonnieanne-mariechary [employer] Work Phone: [facility] 10-13-2024 08:52-0400 Body mass index (BMI) [Ratio] 26.2 kg/m2 Hanane Minorlonnieanne-mariechary [employer] Work Phone: [facility] 10-13-2024 08:52-0400 Body temperature 96.5 [degF] Hanane Bhumi [employer] Work Phone: [facility] 10-13-2024 08:52-0400 Body weight 69.39 kg Hanane Minorlonnieanne-mariechary [employer] Work Phone: [facility] 10-13-2024 08:52-0400 Diastolic blood pressure 68 mm[Hg] Hanane Bhumi [employer] Work Phone: [facility] 10-13-2024 08:52-0400 Heart rate 75 /min Hanane Bhumi RAMOSN Work Phone: [facility] 10-13-2024 08:52-0400 SaO2% (BldA) [Mass fraction] 98 % Hanane Bhumi OSCAR Work Phone: [facility] 10-13-2024 08:52-0400 Systolic blood pressure 102 mm[Hg] Hanane Bhumi OSCAR Work Phone: [facility] 12-07-2022 11:44-0400 Diastolic blood pressure 90 mm[Hg] Brenda Cordoba DMD, MD Work Phone: [facility] 12-07-2022 11:44-0400 Heart rate 82 /min Brenda Cordoba DMD, MD Work Phone: [facility] 12-07-2022 11:44-0400 Respiratory rate 15 /min Brenda Cordoba DMD, MD Work Phone: [facility] 12-07-2022 11:44-0400 SaO2% (BldA) [Mass fraction] 99 % Brenda Cordoba DMD, MD Work Phone: [facility] 12-07-2022 11:44-0400 Systolic blood pressure 132 mm[Hg] Brenda Cordoba DMD, MD Work Phone: [facility] 12-07-2022 10:52-0400 Body temperature 97.9 [degF] Brenda Cordoba DMD, MD Work Phone: [facility] 12-07-2022 09:08-0400 Body height 165.1 cm Brenda Cordoba DMD, MD Work Phone: [facility] 12-07-2022 09:08-0400 Body mass index (BMI) [Ratio] 24.96 kg/m2 Brenda Cordoba DMD, MD Work Phone: [facility] 12-07-2022 09:08-0400 Body weight 68.04 kg Brenda Cordoba DMD, MD Work Phone: [facility] 10-16-2022 09:15-0400 Diastolic blood pressure 84 mm[Hg] Brenda Cordoba DMD, MD Work Phone: [facility] 10-16-2022 09:15-0400 Systolic blood pressure 129 mm[Hg] Brenda Cordoba DMD, MD Work Phone: [facility] 10-16-2022 09:13-0400 Body height 165.1 cm Brenda Cordoba DMD, MD Work Phone: [facility] 10-16-2022 09:13-0400 Heart rate 93 /min Brenda Cordoba DMD, MD Work Phone: [facility] 10-16-2022 09:13-0400 Respiratory rate 20 /min Brenda Cordoba DMD, MD Work Phone: [facility] 10-16-2022 09:13-0400 SaO2% (BldA) [Mass fraction] 100 % Brenda Cordoba DMD, MD Work Phone: [facility] 08-21-2022 13:27-0400 Diastolic blood pressure 80 mm[Hg] Brenda Cordoba DMD, MD Work Phone: [facility] 08-21-2022 13:27-0400 Heart rate 75 /min Brenda Codroba DMD, MD Work Phone: [facility] 08-21-2022 13:27-0400 Systolic blood pressure 132 mm[Hg] Bren[facility] Cordoba DMD, MD [facility] 08-21-2022 13:25-0400 Body height 165.1 cm Brenda Cordoba DMD, MD Work Phone: [facility] 08-21-2022 13:25-0400 Body mass index (BMI) [Ratio] 27.46 kg/m2 Brenda Cordoba DMD, MD Work Phone: [facility] 08-21-2022 13:25-0400 Body weight 74.84 kg Brenda Cordoba DMD, MD [facility] Encounters Encounter Date Encounter Type Care Provider Facility Start: 11-22-2024 End: 11-22-2024 ambulatory Hanane Bhumi OSCAR Work Phone: [facility] Work Phone: Start: 11-22-2024 End: 11-22-2024 Patient encounter procedure Hanane Bhumi [facility] Work Phone: Start: 11-22-2024 End: 11-22-2024 Patient encounter status Hanane Bhumi RAMOSN [facility] Start: 10-13-2024 End: 10-13-2024 ambulatory Hanane Bhumi OSCAR Work Phone: [facility] Work Phone: Start: 10-13-2024 End: 10-13-2024 Patient encounter procedure Hanane Bhumi [facility] Work Phone: Start: 07-14-2024 End: 07-14-2024 Patient encounter procedure PHYSICIAN NO [facility] [address] Work Phone: Start: 07-14-2024 End: 07-14-2024 ambulatory Arthur Zaldivar Facility:[facility] Start: 06-26-2024 End: 06-26-2024 Patient encounter procedure PHYSICIAN NO [facility] [address] Work Phone: Start: 06-26-2024 End: 06-26-2024 ambulatory PHYSICIAN NO [facility] Work Phone: Start: 06-23-2024 End: 06-23-2024 Patient encounter procedure PHYSICIAN NO [facility] [address] Work Phone: Start: 06-23-2024 End: 06-23-2024 ambulatory PHYSICIAN NO [facility] Work Phone: Start: 06-01-2024 End: 06-01-2024 Patient encounter procedure PHYSICIAN NO [facility] [address] Work Phone: Start: 06-01-2024 End: 06-01-2024 ambulatory PHYSICIAN NO [facility] Work Phone: Start: 05-25-2024 End: 05-25-2024 Patient encounter procedure PHYSICIAN NO [facility] [address] Work Phone: Start: 05-25-2024 End: 05-25-2024 ambulatory PHYSICIAN NO [facility] Work Phone: Start: 10-24-2023 End: 10-24-2023 Letter encounter Brenda Cordoba DMD, MD Work Phone: [facility] Start: 04-07-2023 End: 04-12-2023 ambulatory UNKNOWN PROVIDER Facility:[facility] Start: 04-07-2023 End: 04-07-2023 Patient encounter procedure Brenda Cordoba DMD, MD Work Phone: [facility] Oral Surgery Comment on above: Periapical cyst (Shari karen Dx) Start: 04-05-2023 Telephone encounter Brenda ballard DMD, MD Work Phone: [facility] Surgery Start: 12-14-2022 ambulatory [facility] Start: 12-14-2022 End: 12-14-2022 Patient encounter procedure Brenda Cordoba DMD, MD Work Phone: [facility] Oral Surgery Comment on above: Post-operative state (Primary Dx) Start: 12-07-2022 End: 12-07-2022 ambulatory BRENDA CORDBOA [facility] Start: 12-07-2022 End: 12-07-2022 Subsequent hospital visit by physician Brenda Cordoba DMD, MD Work Phone: [facility] Comment on above: Cystic lesion of max illa determined by X-ray (Primary Dx); Impacted teeth Start: 11-24-2022 ambulatory UNKNOWN PROVIDER [facility] Start: 11-24-2022 Encounter for other preprocedural examination UNKNOWN PROVIDER [facility] Start: 10-19-2022 Letter encounter Brenda Cordoba DMD, MD Work Phone: [facility] Surgery Start: 10-16-2022 End: 10-19-2022 ambulatory UNKNOWN PROVIDER Facility:[facility] Start: 10-16-2022 End: 10-19-2022 Patient encounter procedure Brenda Cordoba DMD, MD Work Phone: [facility] Oral Surgery Comment on above: Cystic lesion of max illa determined by X-ray (Primary Dx) Cystic lesion of max illa determined by X-ray (Primary Dx); Body mass index (BMI) 27.0-27.9, adult Start: 08-21-2022 End: 08-21-2022 Patient encounter procedure Brenda Cordoba DMD, MD Work Phone: [facility] Oral Surgery Comment on above: Abnormal tooth erupt ion (Primary Dx) Abnormal tooth erupt ion (Primary Dx); Body mass index (BMI) 27.0-27.9, adult Start: 08-21-2022 End: 08-21-2022 ambulatory UNKNOWN PROVIDER Facility:[facility] Start: 05-25-2022 End: 05-26-[address] TAMARA HAIDER Facility: Start: 05-15-2022 ambulatory [facility] SCAL[facility] Start: 03-19-2022 End: 03-20-[address] JADEN SCALES . Facility: Start: 12-26-2021 End: 12-27-[address] JADEN SCALES . Facility: Procedures Date Procedure Procedure Detail Performing Clinician Start: 12-07-2022 Urine test visual color cmprsn meths Gurdeep Cortes MD, DDS Work Phone: Start: 10-16-2022 Level iv surg pathol ogy gross&microscopic exam Gurdeep Cortes MD, ARJUNS Work Phone: Start: 10-16-2022 Biopsy bone open superficial Gurdeep Cortes MD, DDS Work Phone: Start: 08-21-2022 panoramic radiograph ic image Misael Mariluz [facility] Work Phone: Plan of Treatment Date Care Activity Detail Author Start: 2047 Shingles (RZV) Vacci ne (1 of 2) Shingles (RZV) Vaccine (1 of 2) [facility] Start: 11-22-2024 Patient referral [facility] Work Phone: Start: 12-07-2023 Influenza vaccination Influenz a Vaccine (#1) [facility] Start: 09-02-2023 End: 09-02-2023 Patient encounter procedure 09/02/2023 10:40 AM EDT Procedure Visit [facility] [address] [place] [address] Miguel Angel Lee DDS [address] [place] [address] [facility] Start: 04-07-2023 End: 04-07-2023 Patient encounter procedure 04/07/2023 11:00 AM EST Office Visit [facility] Oral Surgery [address] [place] [address] Brenda Cordoba DMD, MD [address] [place] [address] [facility] Oral Surgery Start: 12-14-2022 End: 12-14-2022 Patient encounter procedure [facility] Start: 12-07-2022 End: 12-07-2022 Admission to same day surgery center 12/07/2022 1:18 PM EDT - 12/07/2022 2:43 PM EDT Surgery [facility] [address] [place] [address] Brenda Cordoba DMD, MD [address] [place] [address] EXCISION CYST [facility] Comment on above: EXCISION CYST Start: 12-07-2022 End: 12-07-2022 Exc benign tumor/cyst maxl/zygoma encl & curtg EXCISION CYST Routine scheduled Cystic lesion of maxilla determined by X-ray 12/07/2022 1:18 PM EDT [facility] Start: 12-07-2022 Subsequent hospital visit by physician 12/07/2022 1:18 PM EDT Hospital Encounter [facility] [address] [place] [address] Brenda Cordoba DMD, MD [address] [place] [address] [facility] Start: 12-07-2022 End: 12-07-2022 Exc benign tumor/cyst maxl/zygoma encl & curtg EXCISION CYST Routine scheduled Cystic lesion of maxilla determined by X-ray 12/07/2022 9:27 AM EDT [address] Start: 12-06-2022 Influenza vaccination Influenz a Vaccine (#1) [facility] Start: 11-24-2022 End: 11-24-2022 Nursing evaluation of patient and report 11/24/2022 9:30 AM EDT Nurse Visit [facility] Pre Surgical Evaluation [address] [place] [address] [facility] Pre Surgical Evaluation Start: 11-06-2022 COVID-19 Vaccine ( season) COVID-19 Vaccine ( season) [facility] Start: 11-06-2022 Influenza vaccination Influenz a Vaccine (#1) [facility] Start: 10-16-2022 End: 10-16-2022 Patient encounter procedure 10/16/2022 9:00 AM EDT Office Visit [facility] Oral Surgery [address] [place] [address] Brenda Cordoba DMD, MD [address] [place] [address] [facility] Start: 06-02-2021 COVID-19 Vaccine (2 - Booster for Moderna series) COVID-19 Vaccine (2 - Booster for Moderna series) [facility] Start: 06-02-2021 COVID-19 Vaccine (3 - Moderna series) COVID-19 Vaccine (3 - Moderna series) [facility] Start: 2018 Screening for malign ant neoplasm of cervix Pap Smear [facility] Start: 2016 Hepatitis A (HAV) Va ccine (optional start 19+ years) Hepatitis A (HAV) Vaccine (optional start 19+ years) [facility] Start: 2016 Hepatitis B vaccination Hepati tis B (HBV) Vaccine (1 of 3 - 19+ 3-dose series) [facility] Start: 2015 Hepatitis C screening Hepatitis C An tibody [facility] Start: 2015 Tetanus + diphtheria + acellular pertussis vaccine (product) [facility] Start: 2012 HIV screening HIV Test [facility] Start: 2012 Vaccination for christian n papillomavirus HPV Vaccine (1 - 3-dose series) [facility] Start: 2008 Vaccination for christian n papillomavirus [facility] Start: 1997 COVID-19 Vaccine ( formulation) COVID-19 Vaccine ( formulation) [facility] Start: 1997 Hepatitis B vaccination Hepati tis B (HBV) Vaccine (1 of 3 - 3-dose series) [facility] Comprehensive metabo lic 2000 panel - Serum or Plasma [facility] Exc benign tumor/cys t maxl/zygoma encl & curtg EXCISION CYST Routine scheduled Cystic lesion of maxilla determined by X-ray [facility] Exc benign tumor/cys t maxl/zygoma encl & curtg EXCISION CYST Routine scheduled Cystic lesion of maxilla determined by X-[facility] Exc benign tumor/cys t maxl/zygoma encl & curtg EXCISION, BENIGN TUMOR/CYST MAXILLA/ZYGOMA, ENUCLEATION AND CURETTAGE Procedures Routine Cystic lesion of maxilla determined by X-ray Ordered: 12/07/2022 [facility] Comment on above: Ordered: 12/07/2022 extraction, erupted tooth or exposed root (elevation and/or forceps removal) EXTRACTION ERUPTED TOOTH/EXR Procedures Routine Cystic lesion of maxilla determined by X-ray Ordered: 12/07/2022 [facility] Comment on above: Ordered: 12/07/2022 Patient referral [facility] Work Phone: removal of impacted tooth - completely bony FULL BONY IMPACTION Procedures Routine Impacted teeth Ordered: 12/07[facility]20[facility] on above: Ordered: 12/07/2022 [facility] pathology [facility] Work Phone: Comment on above: Ordered: 10/16/2022 Surgical pathology procedure SPECIMEN FOR SURGICAL PATH Anatomic Pathology Routine Cystic lesion of maxilla determined by X-ray Release Upon Ordering for 1 Occurrences starting 12/07/2022 [facility] [employer] [facility] Work Phone: Comment on above: Release Upon Orderin g for 1 Occurrences starting 12/07/2022 [facility] Immunizations Immunization Date Immunization Notes Care Provider Fa [facility] 02-01-2023 Influenza, injectabl e, Madin [place] Canine Kidney, preservative free, quadrivalent Brenda Cordoba DMD, MD Work Phone: [facility] 02-01-2023 influenza virus vacc ine, unspecified formulation Brenda Cordoba DMD, MD Work Phone[facility] 04-07-2021 Moderna Monovalent ( 12+ yrs) COVID-19 vaccine, mRNA, spike protein, LNP, PF, 100 mcg/0.5 mL (HRT=991) Brenda Cordoba DMD, MD Work Phone[facility] 07-09-2020 Moderna Monovalent ( 12+ yrs) COVID-19 vaccine, mRNA, spike protein, LNP, PF, 100 mcg/0.5 mL (FRF=862) Brenda Cordoba DMD, MD Work Phone: [facility] 01-31-2020 Influenza, injectabl e, Madin [place] Canine Kidney, preservative free, quadrivalent Brenda Cordoba DMD, MD Work Phone: [facility] 01-31-2020 influenza virus vacc ine, unspecified formulation Brenda Cordoba DMD, MD Work Phone: [facility] Payers Date Payer Category Payer Self-pay 2024 Unknown [id number] 2022 Medicaid [id number] 2018 Unknown [id number] [id number] 1997 Unknown [id number] 2.16.8 40.1.001544.3.579.2.727 1997 Unknown [id number] 2.16.84 0.1.216025.3.579.2.593 1997 Unknown [id number] 2.16.84 0.1.095016.3.579.2.593 1997 Unknown [id number] 2.16.84 0.1.522251.3.579.2.593 1997 Unknown [id number] 2.16. 840.1.035619.3.579.2.732 1997 Unknown [id number] 2.16. 840.1.213259.3.579.2.732 1997 Unknown [id number] 2.16. 840.1.028567.3.579.2.732 1997 Unknown [id number] 2.16. 840.1.490065.3.579.2.732 1997 Unknown [id number] 2.16. 840.1.783689.3.579.2.732 1997 Unknown [id number] 2.16. 840.1.441947.3.579.2.732 1959 Unknown [id number] 1959 Unknown [id number] Unknown [id number] 2.16.8 40.1.408705.3.579.2.531 Unknown [id number] 2.16.8 40.1.096855.3.579.2.531 Unknown [id number] 2.16.8 40.1.051684.3.579.2.531 Unknown [id number] 2.16.8 40.1.815350.3.579.2.531 Unknown [id number] 2.16.8 40.1.915776.3.579.2.531 Unknown [id number] Social History Date Type Detail Facility Start: 08-21-2022 End: 10-13-2024 Tobacco smoking status NHIS Never smoked tobacco [facility] Start: 08-21-2022 Tobacco use and exposure Smokeless tobacco non-user [facility] Start: 1997 Sex Assigned At Not on file [facility] Start: 11-24-2022 End: 12-14-2022 Gender identity Not on file [facility] Start: 11-24-2022 End: 12-14-2022 Alcohol intake Lifetime non-drinker (finding) [facility] Start: 11-24-2022 End: 12-14-2022 History of Social function [facility] Within the last year, have you been afraid of your partner or ex-partner? No [facility] In a typical week, how many times do you talk on the telephone with family, friends, or neighbors? Patient declined [facility] Are you now , , , , never or living with a partner? Living with partner [facility] Start: 12-14-2022 [facility] Tobacco smoking status NHIS Unknown if ever smoked [facility] Work Phone: Start: 05-26-2024 End: 07-15-2024 Sex Female (finding) [facility] Start: 1995 Sex Assigned At Female [facility] NEGATED: Highlighted row N [facility] Clinical Notes 07-30-2022 to 10-13-2024 Note Date & Type Note Facility 10-13-2024 Evaluation note Diagnosis Onset Date Resolution Eustachian tube dysfunction acute October 13, 2024 8:45am Eustachian tube dysfunction acute November 22, 2024 8:26am Wellness examination acute Nov emb2024 8:26am [facility] Work Phone: 1(638) 378-833101-31-2024 History of Present illness Narrative* Clinton Cali DDS - 04/07/2023 12:05 PM EST ORAL SURGERY CLINIC FOLLOW UP VISIT Chief [...] and reproducible Assessment / Diagnosis: Periapical cyst [507451] 27 yrs old White female 4 months [...] #9. [facility] and [facility] for evaluation and treatment of #11. Normal postoperative course. Healing as expected. Case seen and discussed with Dr. Cordoba Plan: Follow-Up: PRN Follow up sooner with new or worsening symptoms. * Joseline Velazquez - 04/07/2023 11:24 AM EST Images from the original note were not included. documented in this [id number] Telephone encounter Note* Telephone Encounter - Jeanette Gonzales - 04/05/2023 9:07 AM EST Patient calling back in. Relayed message patient stated the Am time from 9 am to 11:30 am would work best. Please reach out to her to assist. Phone numbers [phone] Miscellaneous Notes* Telephone Encounter - Jeanette Gonzales - 04/05/2023 9:07 AM EST Patient calling back in. Relayed message patient stated the Am time from 9 am to 11:30 am would work best. Please reach out to her to assist. Phone numbers * Telephone Encounter - Marium Smith - 04/05/2023 8:27 AM EST Called pt to get scheduled for a f/u appt on 04/07 requested by . Lvm stating she can come in any time between 9am-11:30am or 1-330pm documented in this [id number] Telephone encounter Note* Telephone Encounter - Marium Smith - 04/05/2023 8:27 AM EST Called pt to get scheduled for a f/u appt on 04/07 requested by . Lvm stating she can come in any time between 9am-11:30am or 1-330pm [id number] History of Present illness Narrative* Brenda Cordoba DMD, MD - 12/14/2022 12:38 PM EDT Teaching Physician Note: I saw and evaluated the patient. I personally obtained the don and critical portions of the historyand physical exam. I reviewed the resident's documentation and discussed the patient with the resident. I agree with the resident's medical decision making as documented in the resident's note. Brenda Cordoba DMD, MD * Frances Paz MD, DMD - 12/14/2022 11:55 AM EDT Patient is a 27 y/o F who [...] Plan F/u as needed documented in this [id number] History of Present illness Narrative* Frances Paz MD, DMD - 12/14/2022 11:55 AM EDT Patient is a 27 y/o F who [...] Plan F/u as needed documented in this [id number] Hospital Discharge instructions* Discharge Instructions* Saurabh Marquez RN - 12/07/2022 10:53 AM EDT Dental extraction Instructions Biting on Gauze to Control Bleeding Bleeding may occur for some time after you extraction. In most cases this bleeding can be easily controlled by placing a piece of clean gauze DIRECTLY over the empty tooth socket. Then make sure thatyou bite firmly on this gauze for 30 [...] done to speak with an oral surgeon. [facility] [phone]. HELPING THE HEALING PROCESS AND STOPPING THE [...] swelling down. Put the ice pack on youface for 10 minutes and then leave it [...] take them as directed; this includes taking allthe antibiotic (or liquid) pills that were prescribed. If you don't finish them completely a serious infection could result. You may have little of no discomfort after the extraction. If you have minor pain then you may wantto take acetaminophen (Tylenol) or ibuprofen (Motrin). It [...] pain relief. It is important that if youdecide to take it you read and understand [...] ensure that they remain safe in the post- operative period. Under NO circumstances should a patient [...] julius. You should sip slowly over a 15- minute period. When the nausea subsides, you can begin taking solid foods and the prescribed medicine. You may take the anti-nausea medication if prescribed. If the above is not helpful, contact your surgeon. Please if you have any questions or concerns please contact us: [facility] . Ask for the behavioral health director performance test consultant (after hours). lining cementer Clinic Hours: Mon-Fri 8:30 am to 4:30 pm. PERIOPERATIVE DISCHARGE/HOME-GOING INSTRUCTIONS ANESTHESIA - GENERAL (ADULT) If a problem arises, you may contact your physician by calling [phone] and asking for the resident performance test consultant for oral surgery service. Special Care Needs: [...] very uncomfortable and can t urinate, call [phone] or come to the emergency room. The day after surgery, a nurse will call to check on you. However, if there are any questions or concerns, please call us at the number listed in the home going instructions. documented in this [id number] Miscellaneous Notes* OP Note - Brenda Cordoba DMD, MD - 12/07/2022 9:52 AM EDT [facility] Division of epic willow analyst [address] [place] [address] Dr. [place] [address] OPERATIVE NOTE Name: Comfort Victoria MR#: [id number] ENC#: Data Unavailable Surgical Case #: Data Unavailable Date of Procedure: 12/07/2022 ? PREOPERATIVE DIAGNOSIS: Cystic lesion of maxilla determined by X-ray (Primary Diagnosis) [[id number]] Impacted teeth [[id number]] ? POSTOPERATIVE DIAGNOSIS: Cystic lesion of maxilla determined by X-ray (Primary Diagnosis) [[id number]] Impacted teeth [1299306] OPERATION: FULL BONY IMPACTION [D7240] EXTRACTION ERUPTED TOOTH/EXR [D7140] EXCISION, BENIGN TUMOR/CYST MAXILLA/ZYGOMA, ENUCLEATION AND CURETTAGE [[id number]] ? ATTENDING SURGEON: Brenda Cordoba ? FIRST [...] cystic cavity, but tooth #10 is centered inthe cyst.. ? DESCRIPTION OF OPERATION: The patient was taken to the operating room on a cart and transferred onto the operating room tableunder [employer]. The patient was then placed in the supine position. A time-out was conductedto confirm correct patient and procedure to be performed. Anesthesia team, Surgical staff and Nursing team all agreed on correct patient and laterality of the procedure. At this time care of the patient was transferred over to the Anesthesia Service for induction of general anesthetic and intubation. The patient was intubated via oral endotracheal tube intubation. The tube was secured and care ofthe patient was transferred back to the Oral [...] impactions Surgical access and exposure was accomplished bya buccal FTF 45 hockey stick incision. Alveolar bone removal was accomplished with a cat drill andirrigation.. The teeth were sectioned into 2 pieces. The teeth and/or fragments were removed by elevator technique. Surgical debris and remaining epithelial fragments were removed by rongeurs. The wounds were irrigated with sterile saline. Mucogingival wound closure utilized 3-0 Chromic interruptedsutures. A sulcular incision was performed from tooth [...] Brenda Cordoba DMD, MD documented in this [id number] Surgery Surgical operation note* OP Note - Brenda Cordoba DMD, MD - 12/07/2022 9:52 AM EDT [facility] Division of epic willow analyst [address] [place] [address] Dr. [place] [address] OPERATIVE NOTE Name: Comfort Victoria MR#: [id number] ENC#: Data Unavailable Surgical Case #: Data Unavailable Date of Procedure: 12/07/2022 ? PREOPERATIVE DIAGNOSIS: Cystic lesion of maxilla determined by X-ray (Primary Diagnosis) [5553588] Impacted teeth [3503407] ? POSTOPERATIVE DIAGNOSIS: Cystic lesion of maxilla determined by X-ray (Primary Diagnosis) [0302268] Impacted teeth [4993266] OPERATION: FULL BONY IMPACTION [D7240] EXTRACTION ERUPTED TOOTH/EXR [D7140] EXCISION, BENIGN TUMOR/CYST MAXILLA/ZYGOMA, ENUCLEATION AND CURETTAGE [[id number]] ? ATTENDING SURGEON: Brenda Cordoba ? FIRST [...] cystic cavity, but tooth #10 is centered inthe cyst.. ? DESCRIPTION OF OPERATION: The patient was taken to the operating room on a cart and transferred onto the operating room tableunder [employer]. The patient was then placed in the supine position. A time-out was conductedto confirm correct patient and procedure to be performed. Anesthesia team, Surgical staff and Nursing team all agreed on correct patient and laterality of the procedure. At this time care of the patient was transferred over to the Anesthesia Service for induction of general anesthetic and intubation. The patient was intubated via oral endotracheal tube intubation. The tube was secured and care ofthe patient was transferred back to the Oral [...] impactions Surgical access and exposure was accomplished bya buccal FTF 45 hockey stick incision. Alveolar bone removal was accomplished with a cat drill andirrigation.. The teeth were sectioned into 2 pieces. The teeth and/or fragments were removed by elevator technique. Surgical debris and remaining epithelial fragments were removed by rongeurs. The wounds were irrigated with sterile saline. Mucogingival wound closure utilized 3-0 Chromic interruptedsutures. A sulcular incision was performed from tooth [...] ? ? ? Brenda Cordoba DMD, MD [id number] History of Present illness Narrative* Brenda Cordoba DMD, MD - 10/19/2022 1:21 PM EDT Teaching Physician Note: I saw and evaluated the patient. I personally obtained the don and critical portions of the historyand physical exam. I reviewed the resident's documentation and discussed the patient with the resident. I agree with the resident's medical decision making as documented in the resident's note. Will plan for definitive enucleation and curettage of left maxillary cyst, and likely extraction oftooth/teeth at [facility], pending path. Brenda Cordoba DMD, MD * Gurdeep Cortes MD, DDS - 10/16/2022 9:19 AM EDT ORAL SURGERY CLINIC PROCEDURE NOTE [facility] Surgical Product(s): Biopsy of left anterior [...] Gurdeep Cortes MD, DDS documented in this [id number]Intr[address]ep[address] with Dr[address] Iftikhar Terrell [facility] Work Phone: 1(154) 230-148508-14-[address] Iftikhar Terrell [facility] Work Phone: 1(720) 381-880908-11-2023 NoteORAL SURGERY CLINIC PROCEDURE NOTE [facility] Surgical Product(s): Biopsy of left anterior [...] 32 under [place] at Gurdeep Cortes MD, [facility] [id number] Instructions* Patient Instructions* Gurdeep Cortes MD, DDS - 10/16/2022 9:43 [...] done to speak with an oral surgeon. [facility] [phone]. HELPING THE HEALING: For 24 HOURS after [...] take them as directed; this includes taking allthe antibiotic (or liquid) pills that were prescribed. If you don't finish them completely a serious infection could result. You may have little of no discomfort after the extraction. If you have minor pain then you may wantto take acetaminophen (Tylenol) or ibuprofen (Motrin). It is very important that before taking any medications that you read and follow the directions and warnings that come with these products so you know whether they are right for you and your situation. If you have any questions on whether thesemedications are right for you, first talk to your doctor or pharmacist before taking the medication. Your surgeon may have given you a written prescription for pain relief. It is important that if youdecide to take it you read and understand [...] ensure that they remain safe in the post- operative period. Under NO circumstances should a patient [...] julius. You should sip slowly over a 15- minute period. When the nausea subsides, you can begin taking solid foods and the prescribed medicine. You may take the anti-nausea medication if prescribed. If the above is not helpful, contact your surgeon. Please if you have any questions or concerns please contact us: [facility] . Ask for the behavioral health director performance test consultant (after hours). lining cementer Clinic Hours: Mon-Fri 8:30 am to 4:30 pm. documented in this [id number] Instructions* Patient Instructions* Gurdeep Cortes MD, DDS - 10/16/2022 9:43 [...] done to speak with an oral surgeon. [facility] [phone]. HELPING THE HEALING: For 24 HOURS after [...] take them as directed; this includes taking allthe antibiotic (or liquid) pills that were prescribed. If you don't finish them completely a serious infection could result. You may have little of no discomfort after the extraction. If you have minor pain then you may wantto take acetaminophen (Tylenol) or ibuprofen (Motrin). It is very important that before taking any medications that you read and follow the directions and warnings that come with these products so you know whether they are right for you and your situation. If you have any questions on whether thesemedications are right for you, first talk to your doctor or pharmacist before taking the medication. Your surgeon may have given you a written prescription for pain relief. It is important that if youdecide to take it you read and understand [...] ensure that they remain safe in the post- operative period. Under NO circumstances should a patient [...] julius. You should sip slowly over a 15- minute period. When the nausea subsides, you can begin taking solid foods and the prescribed medicine. You may take the anti-nausea medication if prescribed. If the above is not helpful, contact your surgeon. Please if you have any questions or concerns please contact us: [facility] . Ask for the behavioral health director performance test consultant (after hours). lining cementer Clinic Hours: Mon-Fri 8:30 am to 4:30 pm. documented in this [id number] History of Present illness Narrative* Gurdeep Cortes MD, YONY - 10/16/2022 9:19 AM EDT ORAL SURGERY CLINIC PROCEDURE NOTE [facility] Surgical Product(s): Biopsy of left anterior [...] Gurdeep Cortes MD, DDS documented in this [id number] History of Present illness Narrative* Brenda Cordoba DMD, MD - 08/31/2022 9:45 AM EDT Teaching Physician Note: I saw and evaluated the patient. I personally obtained the don and critical portions of the historyand physical exam. I reviewed the resident's documentation and discussed the patient with the resident. I agree with the resident's medical decision making as documented in the resident's note. Next step is to return for incisional biopsy of left maxillary cystic lesion, with LA in clinic. Brenda Cordoba DMD, MD * Misael Mcgraw DMD - 08/21/2022 2:31 PM EDT Images from the original note were not included. [facility] PATIENT VISIT CHIEF COMPLAINT: I have a cyst in my jaw HISTORY OF PRESENT ILLNESS: 27 year old female with no significant PMH presents with mother to [facility] as a referral from an outside provider [...] for excision of lesion with GA at [facility] d/t the invasiveness of the procedure. [...] once diagnosis is made) Misael Mcgraw DMD * Dallas Ruiz - 08/21/2022 1:55 PM EDT Images from the original note were not included. Pano ordered by Dr. Paz documented in this [id number] History of Present illness Narrative* Misael Mcgraw DMD - 08/21/2022 2:31 PM EDT Images from the original note were not included. [facility] PATIENT VISIT CHIEF COMPLAINT: I have a cyst in my jaw HISTORY OF PRESENT ILLNESS: 27 year old female with no significant PMH presents with mother to [facility] as a referral from an outside provider [...] once diagnosis is made) Misael Mcgraw DMD * Dallas Ruiz - 08/21/2022 1:55 PM EDT Images from the original note were not included. Pano ordered by Dr. Paz documented in this [id number] NotePT called in stating she would like a sooner appt than what she has scheduled. Looking at PT's referral, PT is to see us for a Maxillary Cyst and PT was scheduled for a CIRCULAR KNIFE MACHINE CUTTER 30 min appt. We were told these referrals are top priority and NO PROVIDERS have openings available on the template. Please call PT to discuss and to reschedule [phone] Diagnosis Abnormal tooth eruption- Primary Disturbances in tooth eruption [facility] Diagnosis Abnormal tooth eruption- Primary Disturbances [...] of dental pulp [facility] noteNo assessment information availableThe [facility] Work Phone: Evaluation note* Diagnosis Onset Date Resolution Status Admit Date Eustachian tube dysfunction acute October 13, 2024 8:45am [facility] Work Phone: Hospital Discharge instructionsAmbulatory Orders* Referral to ENT Time Frame: 11/22/24, Location: None Selected [facility] Work Phone: Reason for referral (narrative)No reason for referral information availableDayton [facility] Work Phone: Summary Purpose Family History Relationship Condition Age at Onset Recorded Date/T natalee father Diabetes mellitus Unknown mother Hypertension Unknown Diabetes mellitus Unknown Heart disease Unknown Advance Directives Advance Directive Response Recorded Date/ Time Advance Directives No May 25 2:26pm Reason for Referral Specialty Diagnoses / Procedures Referred By Dayne reynoso Referred To Contact Oral Surgery Diagnoses Abnormal tooth eruption Procedures BIOPSY OF ORAL TISSUE - HARD Brenda Cordoba DMD, MD [address] [place] [address] Referral ID Status Reason Start Date Expiration Date V isits Requested Visits Authorized [id number] Pending Review 08/24/2022 08/25/2023 1 1 Scheduling [...] your procedure, you will be contacted with [id number] costs or next steps. All self-pay payments [...] the procedure: You also MUST have a cdl dedicated truck driver/escort >18yrs old present to take you [...] ADDL 15 MIN Brenda Cordoba DMD, MD [address] [place] [id number] Referral ID Status Reason Start Date Expiration Date V isits Requested Visits Authorized [id number] Pending Review 08/24/2022 08/25/2023 1 1 Question [...] Referred By Dayne t Referred To Contact Dentistry Diagnoses Periapical cyst Brenda Cordoba DMD, MD [address] [place], [place] [id number] Dentistry [address] [place] [address] Referral ID Status Reason Start Date Expiration Date V isits Requested Visits Authorized [id number] Authorized 04/07/2023 10/04/2023 3 3 Scheduling Instructions Please call the Dental Clinic at [facility] at to schedule an appointment if one was not made for you today. Comments Had large apical granuloma related to #10, which was extracted and granuloma removed. Tooth #11 is likely devitalized by the granuloma excision (apex of #11 is in the cystic cavity). Please eval for endo tx on #11 Chief Complaint and Reason for Visit Chief Complaint Admit Date S91.012A May 25, 2024 2:0 9pm Chief Complaint Admit Date S91.012A May 25, 2024 2:0 9pm S91.012A June 01, 2024 10: 46am Chief Complaint Admit Date S91.012A May 25, 2024 2:0 9pm S91.012A June 01, 2024 10: 46am S91.012A June 23, 2024 10: 01am Chief Complaint Admit Date S91.012A May 25, 2024 2:0 9pm S91.012A June 01, 2024 10: 46am S91.012A June 23, 2024 10: 01am S91.012A June 26, 2024 1:5 4pm Chief Complaint Admit Date S91.012A May 25, 2024 2:0 9pm S91.012A June 01, 2024 10: 46am S91.012A June 23, 2024 10: 01am S91.012A June 26, 2024 1:5 4pm S91.012A July 14, 2024 10:17a m Chief Complaint Admit Date establish October 13, 2024 8:4 5am Reason for Visit Admit Date Eustachian tube dysfunction October 13, 2024 8:45am Chief Complaint Admit Date establish October 13, 2024 8:4 5am 4 week f/u Wellness November 22, 2024 8:26am Reason for Visit Admit Date Eustachian tube dysfunction October 13, 2024 8:45am Eustachian tube dysfunction November 222024 8:26am Wellness examination November 22 8:26am Additional Source Comments INFORMATION SOURCE (unrecogn ized section and content) DATE CREATED AUTHOR 05/16/2022 [facility] DATE CREATED AUTHOR AUTHOR'S ORGANIZ ATION 06/03/2022 [facility] DATE CREATED AUTHOR AUTHOR'S ORGANIZ ATION 04/13/2023 [facility] DATE CREATED AUTHOR AUTHOR'S ORGANIZ ATION 07/19/2024 [facility] Reason for Visit (unrecogniz ed section and content) Specialty Diagnoses / Procedures Referred By Dayne reynoso Referred To Contact Oral Surgery Diagnoses Maxillary cyst Tamara Haider MD [address] [place], [place] [id number] [facility] ORAL SURGERY [address] [place] [id number] Referral ID Status Reason Start Date Expiration Date V isits Requested Visits Authorized [id number] Authorized 06/24/2022 06/25/2023 3 3 Reason Comments Procedure Specialty Diagnoses / Procedures Referred By Dayne reynoso Referred To Contact Oral Surgery Diagnoses Abnormal tooth eruption Procedures BIOPSY OF ORAL TISSUE - HARD Brenda Cordoba DMD, MD [address] [place] [address] Referral ID Status Reason Start Date Expiration Date Visits Re quested Visits Authorized [id number] Closed 08/24/2022 08/25/2023 1 1 Specialty Diagnoses / Procedures Referred By Dayne reynoso Referred To Contact Ambulatory Surgery Diagnoses Cystic lesion of maxilla determined by X-ray Cystic lesion of maxilla determined by X-ray [M27.40] Procedures EXCISION, BENIGN TUMOR/CYST MAXILLA/ZYGOMA, ENUCLEATION AND CURETTAGE EXCISION CYST Brenda Cordoba DMD, MD [address] [place] [id number] [facility] [address] [place] [id number] Phone: [phone] Referral ID Status Reason Start Date Expiration Date Visits Re quested Visits Authorized [id number] 3 3 Specialty Diagnoses / Procedures Referred By Dayne reynoso Referred To Contact Oral Surgery Diagnoses Abnormal tooth eruption Procedures FULL BONY IMPACTION DEEP ANESTHESIA, 1ST 15 MINS GENERAL ANESTH EA ADDL 15 MIN Brenda Cordoba DMD, MD [address] [place], [place] [id number] [facility] [address] [address] Referral ID Status Reason Start Date Expiration Date V isits Requested Visits Authorized [id number] Closed Consultation -[facility] 08/24/2022 03/17/2023 1 1 Care Teams (unrecognized sec tion and content) Fitness Supervisor Relationship Specialty Start Date End Date Brenda Cordoba DMD, MD [address] [place], [place] [phone] Physician Oral & Maxillofacial Surgery 09/05/22 Fitness Supervisor Relationship Specialty Start Date End Date Brenda Cordoba DMD, MD [address] [place], [place] [phone] Physician Oral & Maxillofacial Surgery 09/05/22 Fitness Supervisor Relationship Specialty Start Date End Date Brenda Cordoba DMD, MD [address] [place], [place] [phone] Physician Oral & Maxillofacial Surgery 09/05/22 Fitness Supervisor Relationship Specialty Start Date End Date Brenda Cordoba DMD, MD [address] [place] [address] Physician Oral & Maxillofacial Surgery 09/05/22 Fitness Supervisor Relationship Specialty Start Date End Date Brenda Cordoba DMD, MD [address] [place] [address] Physician Oral & Maxillofacial Surgery 09/05/22 Fitness Supervisor Relationship Specialty Start Date End Date Brenda Cordoba DMD, MD [address] [place] [phone] Physician Oral & Maxillofacial Surgery 09/05/22 Fitness Supervisor Relationship Specialty Start Date End Date Brenda Cordoba DMD, MD [address] [place] [phone] Physician Oral & Maxillofacial Surgery 09/05/22 Fitness Supervisor Relationship Specialty Start Date End Date Brenda Cordoba DMD, MD [address] [place] [phone] Physician Oral & Maxillofacial Surgery 09/05/22 Fitness Supervisor Relationship Specialty Start Date End Date Brenda Cordoba DMD, MD [address] [place] [phone] Physician Oral & Maxillofacial Surgery 09/05/22 Team Status: Active Member Role Status Dates PHYSICIAN NO FAMILY Primary Care Provider Active Team Status: Inactive Member Role Status Dates PHYSICIAN NO FAMILY Primary Care Provider Active Start: May 25, 2024 End: May 25, 2024 Arthur Zaldivar Jr, DO Attending Provider Active S tart: May 25, 2024 End: May 25, 2024 Team Status: Inactive Member Role Status Dates PHYSICIAN NO FAMILY Primary Care Provider Active Start: June 01, 2024 End: June 01, 2024 Arthur Zaldivar Jr, DO Attending Provider Active S tart: June 01, 2024 End: June 01, 2024 Team Status: Inactive Member Role Status Dates PHYSICIAN NO FAMILY Primary Care Provider Active Start: June 23, 2024 End: June 23, 2024 Arthur Zaldivar Jr, DO Attending Provider Active S tart: June 23, 2024 End: June 23, 2024 Team Status: Inactive Member Role Status Dates PHYSICIAN NO FAMILY Primary Care Provider Active Start: June 26, 2024 End: June 26, 2024 Arthur Zaldivar Jr, DO Attending Provider Active S tart: June 26, 2024 End: June 26, 2024 Team Status: Inactive Member Role Status Dates PHYSICIAN NO FAMILY Primary Care Provider Active Start: July 14, 2024 End: July 14, 2024 Arthur Zaldivar Jr, DO Attending Provider Active S tart: July 14, 2024 End: July 14, 2024 Team Status: Active Member Role Status Dates Hanane Tripathi APRN CIRCULAR KNIFE MACHINE CUTTER-C Primary Care Provider Active Team Status: Inactive Member Role Status Vega Tripathi APRN CIRCULAR KNIFE MACHINE CUTTER-C Primary Care Provider Active Start: October 13, 2024 End: October 13, 2024 Hanane Tripathi APRN CIRCULAR KNIFE MACHINE CUTTER-C Attending Provider Act amberly Start: October 13, 2024 End: October 13, 2024 Team Status: Inactive Member Role Status Vega Tripathi APRN CIRCULAR KNIFE MACHINE CUTTER-C Primary Care Provider Active Start: November 062024 End: November 22, 2024 Hanane Tripathi APRN CIRCULAR KNIFE MACHINE CUTTER-C Attending Provider Active Start: November End: November 22, 2024 Scheduled Active and Recently Administ ered Medications [...] bupivacaine (MARCAINE) 20 mL, lidocaine-epinephrine (XYLOCAINE) 1 %-[id number] 20 mL, dose administered = 20 mL given 40 mL sc injection (CANCELED) PRN, Starting on Wed12/07/22 at 1004, Until Wed12/07/22 at 1050 1004 (Given - Provid er: Sam Botello DDS) chlorhexidine (PERIDEX) 0.12 % oral solution (CANCELED) PRN, Starting on Wed12/07/22 at 1012, Until Wed12/07/22 at 1050, Intra-op 1012 (Given - Provid er: Sam Botello DDS - Comment: sent home wit patient) [...] Tablet, Oral, PRN, 1 dose, Starting on 10/2/23 at 0919, Until Discontinued, Moderate Pain (pain score 4,5,6), PACU Now oxymetazoline (AFRIN) 0.05 % nasal solution (CANCELED) PRN, Starting on Wed12/07/22 at 1033, Until Wed12/07/22 at 1050, Intra-op 1033 (Given - Provid er: Sam Botello DDS - Comment: afrin soaked cottonoid applied in mouth) Goals (unrecognized section and content) Goals may be documented in a n alternate sectionGoals may be documented in an alternate sectionGoals may be documented in an alternate sectionGoals may be documented in an alternate sectionGoals may be documented in an alternate sectionGoals may be documented in an alternate sectionGoals may be documented in an alternate section FOR RECORDS PERTAINING TO PATIENTS WHO ARE [...] BE BASED ON THE PRIMARY CLINICAL RECORDS. [employer] provides no warranty or guarantee of the accuracy or completeness of information in this document.
[2024-11-22 09:48] LABS: Alanine Aminotransferase 15 U/L (14-59); Albumin Globulin Ratio 1.1; Albumin Level 4.3 g/dL (3.4-5.0); Alkaline Phosphatase 55 U/L (46-116); Anion Gap 11.9; Aspartate Amino Transferase 16 U/L (15-37); Blood Urea Nitrogen 7.0 mg/dL (7.0-18.0); Calcium 9.2 mg/dL (8.5-10.1); Carbon Dioxide 27.4 mmol/L (21.0-32.0); Chloride 106 mmol/L (98-107); Cholesterol 155 mg/dL (<=200); Estimated GFR (African America >60 (>=60 mL/min/1.73m^2); Estimated GFR (Non-African Ame >60 (>=60 mL/min/1.73m^2); Globulin 3.8 g/dL; Glucose 76 mg/dL (74-106); HDL Cholesterol 82 mg/dL (40-60); Potassium 3.3 mmol/L (3.5-5.1); Sodium 142 mmol/L (136-145); Total Protein 8.1 g/dL (6.4-8.2); Triglycerides 39 mg/dL (<=150); VLDL CHOLESTEROL 7.8 mg/dL
[2024-11-22 09:53] LABS: Hematocrit 40.2 % (36.0-48.0); Hemoglobin 13.4 g/dL (12.0-16.0); Immature Granulocytes Abs Auto 0.00 10^3/uL (0.00-0.03); Immature Granulocytes Pct Auto 0.0 % (0.0-0.5); Lymphocytes Absolute Auto 1.5 10^3/uL (1.2-3.8); Mean Corpuscular HGB Conc 33.3 g/dL (29.9-35.2); Mean Corpuscular Hemoglobin 28.6 pg (26.7-34.0); Mean Corpuscular Volume 85.9 fL (81.0-99.0); Platelet Count 219 10^3/uL (150-450); Red Blood Count 4.68 10^6/uL (4.20-5.40); White Blood Count 4.3 10^3/uL (4.0-11.0)
== END 2024-11-22 08:56 | disposition home or self-care (01) ==
PROVIDERS: PCP Nurse Practitioner Family; Visit Provider Nurse Practitioner Family
DX: Z00.00 Encounter for general adult medical examination without abnormal findings (principal); Z83.3 Family history of diabetes mellitus; Z82.49 Family history of ischemic heart disease and other diseases of the circulatory system
CPT/HCPCS: 36415; 80053; 80061; 85025